=== PATIENT | male | born 1955 | race Caucasian/White ===

== ENCOUNTER 2020-03-12 09:44 | Emergency (ER) | payer BC ==
[2020-03-12 09:50] VITALS: BP 167/79; PULSE 68; TEMP 98.1; BMI 29.5
--- NOTE | 2020-03-12 11:02 | PDOC ---
Suture Removal/Wound Check HPI - History of Present Illness Chief Complaint: Suture/Staple Removal(Here) Stated Complaint: SUTURE REMOVAL (VADIM/HEAD) Time Seen by Provider: 03/12/20 10:40 History Source: Yes: Patient - Previous ED Treatment Type of procedure performed on last visit: Yes: Laceration Repair Past History - Medical History Allergies/Adverse Reactions: Allergies Allergy/AdvReac Type Severity Reaction Status Date / Time No Known Drug Allergies Allergy Verified 03/12/20 09:48 Home Medications: Ambulatory Orders Fenofibrate 160 mg PO DAILY 09/09/13 Naproxen Sodium [Aleve] 440 mg PO PRN PRN 09/09/13 Oxycodone HCl/Acetaminophen [Percocet 5-325 mg Tablet] 1 tab PO PRN PRN 09/09/13 metFORMIN HCL [Glucophage] 1,000 mg PO BID 09/09/13 Anemia: No Asthma: No Cancer: No Cardiac Disorders: No CVA: No COPD: No CHF: No Dementia: No Diabetes: Yes (BORDERLINE) GI Disorders: No Disorders: No Hypercholesterolemia: Yes Liver Disease: No Seizures: No Thyroid Disease: No - Immunization History Immunization Up to Date: Yes - Psycho-Social/Smoking History Smoking History: Former smoker Have you smoked in the past 12 months: Yes Number of Cigarettes Smoked Daily: 25 Information on smoking cessation initiated: No 'Breaking Loose' booklet given: 09/10/13 - Substance Abuse Hx (Audit-C & DAST Scrn) How often the patient has a drink containing alcohol: Never Score: In Men: 4 or > Positive; In Women: 3 or > Positive: 0 Screen Result (Pos requires Nsg. Audit-10AR): Negative In the last yr the pt used illegal drug/Rx for NonMed reason: No Score: Yes response is considered Positive: 0 Screen Result (Positive result requires Nsg. DAST-10): Negative *Review of Systems - Review of Systems Constitutional: No: Chills, Fever *Physical Exam - Vital Signs Last Vital Signs Temp Pulse Resp BP Pulse Ox 98.1 F 68 18 167/79 100 03/12/20 09:48 03/12/20 09:48 03/12/20 09:48 03/12/20 09:48 03/12/20 09:48 - Physical Exam General Appearance: Yes: Appropriately Dressed. No: Apparent Distress HEENT: positive: Normal Voice Neck: positive: Supple Respiratory/Chest: negative: Respiratory Distress Integumentary: positive: Dry, Warm, Other (well healed vertical lac to mid frontal scalp w/ vadim in place, no e/o infection) Neurologic: positive: Fully Oriented, Alert, Normal Mood/Affect Medical Decision Making - Medical Decision Making 03/12/20 12:24 65-year-old male, here for staple removal to scalp. No complaints at this time. Patient well-appearing and stable with well-healing wound to frontal scalp with 6 vadim intact. Vadim removed out any complications Discharge - Discharge Information Problems reviewed: Yes Clinical Impression/Diagnosis: Encounter for removal of vadim Condition: Good Disposition: HOME - Follow up/Referral Referrals: Oswald Strange MD [Primary Care Provider] - - Patient Discharge Instructions Additional Instructions: Return as needed - Post Discharge Activity
== END 2020-03-12 10:49 | disposition home or self-care (01) ==
LOC: JERFT 09:44
DX: Z48.02 Encounter for removal of sutures (principal)
CPT/HCPCS: 99281-25

== ENCOUNTER 2020-08-07 11:01 | Emergency (ER) | payer OTHER, BC ==
[2020-08-07 11:34] VITALS: BP 168/84; PULSE 66; TEMP 98.1; BMI 29.0
[2020-08-07] MEDS ORDERED: LIDOCAINE 5% TOPICAL PATCH TP ONE (11:44)
[2020-08-07] MEDS ORDERED: KETOROLAC TROMETHAMINE 30 MG/1 ML VIAL IM ONE (11:44)
[2020-08-07] MEDS ORDERED: METHOCARBAMOL 500 MG TABLET PO ONE (11:44)
[2020-08-07] MEDS ORDERED: LIDOCAINE 5% TOPICAL PATCH ONE (11:45)
[2020-08-07] MEDS ORDERED: METHOCARBAMOL 500 MG TABLET ONE (11:46)
[2020-08-07] MEDS ORDERED: KETOROLAC TROMETHAMINE 30 MG/1 ML VIAL ONE (11:46)
== END 2020-08-07 13:18 | disposition home or self-care (01) ==
LOC: JERFT 11:01
PROC: 3E0233Z Introduction of Anti-inflammatory into Muscle, Percutaneous Approach (ICD-10-PCS; principal; 2020-08-07)
DX: M54.5 Low back pain (principal); W19.XXXA Unspecified fall, initial encounter
CPT/HCPCS: 72100-TC-FY; 99284-25

== ENCOUNTER 2020-12-13 17:17 | Observation (INO) | payer BC ==
[2020-12-13 19:23] LABS: BASO % 0.4 % (0-2.0); EOS % 0.7 % (0-4.5); HEMATOCRIT 43.4 % (35.4-49); HEMOGLOBIN 14.8 GM/dL (11.7-16.9); LYMPH % 24.1 % (8-40); MCH 31.4 pg (25.7-33.7); MCHC 34.2 g/dl (32.0-35.9); MEAN PLT VOLUME 7.1 fl (7.5-11.1); MONO % 4.9 % (3.8-10.2); NEUT % 69.9 % (42.8-82.8); PLATELET COUNT 279 K/MM3 (134-434); RBC 4.72 M/mm3 (4.00-5.60); WHITE BLOOD COUNT 7.5 K/mm3 (4.0-10.0)
[2020-12-13 19:37] LABS: CHLORIDE 107 mmol/L (98-107); SODIUM 139 mmol/L (136-145)
[2020-12-13 19:40] LABS: CALCIUM 9.1 mg/dL (8.5-10.1)
[2020-12-13 19:41] LABS: ALBUMIN 4.1 g/dl (3.4-5.0); ANION GAP 9 MMOL/L (8-16); BLOOD UREA NITROGEN 16.6 mg/dL (7-18); CO2 24 mmol/L (21-32); GLUCOSE,RANDOM 104 mg/dL (74-106)
[2020-12-13 19:44] LABS: CREATININE 1.2 mg/dL (0.55-1.3); SGOT/AST 15 U/L (15-37)
[2020-12-13 19:46] LABS: BILIRUBIN,TOTAL 0.7 mg/dL (0.2-1); TOT PROT 6.4 g/dl (6.4-8.2)
[2020-12-13 19:47] LABS: ALK PHOS 84 U/L (45-117)
[2020-12-13 19:51] LABS: SGPT/ALT 29 U/L (13-61)
[2020-12-13] MEDS ORDERED: ACETAMINOPHEN 325 MG TABLET (FP) PO PRN (22:32)
[2020-12-13] MEDS ORDERED: CARVEDILOL 12.5 MG TABLET (FP) ONE (23:00)
[2020-12-13] MEDS: CARVEDILOL 25 MG TABLET (FP) PO SCH (23:08)
[2020-12-13] MEDS ORDERED: ACETAMINOPHEN 325 MG TABLET (FP) ONE (23:48)
[2020-12-14 01:27] VITALS: BMI 27.5
[2020-12-14] MEDS: INSULIN SLIDING SCALE (NOVOLOG) 1 VIAL SQ SCH ×4 (06:25→21:03)
[2020-12-14 06:53] LABS: URINE APPEARANCE CLEAR; URINE BILIRUBIN NEGATIVE (NEGATIVE); URINE COLOR DK YELLOW; URINE GLUCOSE (UA) NEGATIVE (NEGATIVE); URINE KETONE TRACE (NEGATIVE); URINE LEUK ESTERASE NEGATIVE (NEGATIVE); URINE NITRITE NEGATIVE (NEGATIVE); URINE PROTEIN TRACE (NEGATIVE)
[2020-12-14 07:10] LABS: BASO % 0.6 % (0-2.0); EOS % 2.2 % (0-4.5); HEMOGLOBIN 13.9 GM/dL (11.7-16.9); LYMPH % 25.2 % (8-40); MCH 31.4 pg (25.7-33.7); MEAN CELL VOLUME 92.5 fl (80-96); MEAN PLT VOLUME 7.5 fl (7.5-11.1); MONO % 5.5 % (3.8-10.2); NEUT % 66.5 % (42.8-82.8); PLATELET COUNT 252 K/MM3 (134-434); RBC 4.44 M/mm3 (4.00-5.60); RDW 13.5 % (11.9-15.9); WHITE BLOOD COUNT 8.3 K/mm3 (4.0-10.0)
[2020-12-14 07:16] LABS: INR 1.14 (0.83-1.09)
[2020-12-14 07:40] LABS: ALBUMIN 3.7 g/dl (3.4-5.0); CALCIUM 8.9 mg/dL (8.5-10.1)
[2020-12-14 07:43] LABS: MAGNESIUM 2.4 mg/dL (1.8-2.4)
[2020-12-14 07:46] LABS: BILIRUBIN,TOTAL 0.8 mg/dL (0.2-1); TOT PROT 6.1 g/dl (6.4-8.2)
[2020-12-14 07:51] LABS: PHOSPHOROUS 4.2 mg/dL (2.5-4.9)
[2020-12-14] MEDS ORDERED: PNEUMOC 13-VAL CONJ-DIP CRM/PF 0.5 ML DISP.SYRIN IM ONE (10:00)
[2020-12-14] MEDS: ENOXAPARIN NA (PORCINE) 40 MG/0.4 ML DISP.SYRIN SQ SCH (10:41)
[2020-12-14] MEDS: CARVEDILOL 25 MG TABLET (FP) PO SCH ×2 (10:41→21:03)
[2020-12-14] MEDS ORDERED: ASPIRIN 325 MG TABLET PO ONE (20:45)
[2020-12-14] MEDS ORDERED: CARVEDILOL 12.5 MG TABLET (FP) PO ONE (20:55)
[2020-12-15] MEDS ORDERED: ASPIRIN 325 MG TABLET PO ONE (00:24)
[2020-12-15] MEDS ORDERED: CARVEDILOL 25 MG TABLET (FP) PO ONE (00:25)
[2020-12-15] MEDS: INSULIN SLIDING SCALE (NOVOLOG) 1 VIAL SQ SCH ×4 (06:04→21:04)
[2020-12-15 07:40] LABS: CHLORIDE 106 mmol/L (98-107); SODIUM 140 mmol/L (136-145)
[2020-12-15 07:44] LABS: ANION GAP 9 MMOL/L (8-16); CALCIUM 8.5 mg/dL (8.5-10.1); CO2 24 mmol/L (21-32)
[2020-12-15 07:45] LABS: BLOOD UREA NITROGEN 16.8 mg/dL (7-18); GLUCOSE,RANDOM 99 mg/dL (74-106)
[2020-12-15 07:48] LABS: CREATININE 0.7 mg/dL (0.55-1.3)
[2020-12-15 09:02] LABS: MAGNESIUM 2.1 mg/dL (1.8-2.4)
[2020-12-15] MEDS ORDERED: POTASSIUM CHLORIDE TABS 20 MEQ TABLET.ER (FP) PO ONE (11:02)
[2020-12-15] MEDS: CARVEDILOL 25 MG TABLET (FP) PO SCH ×2 (11:05→21:07)
[2020-12-15] MEDS: ASPIRIN 81 MG CHEWABLE TABLETS PO SCH (11:05)
[2020-12-15] MEDS: ENOXAPARIN NA (PORCINE) 40 MG/0.4 ML DISP.SYRIN SQ SCH (11:05)
[2020-12-15] MEDS: TAMSULOSIN HCL 0.4 MG CAP PO SCH (11:05)
[2020-12-15] MEDS: LISINOPRIL 20 MG TABLET PO SCH (11:05)
[2020-12-15] MEDS: KCL 10 MEQ IVPB 10 MEQ/100 ML INFUS.BAG IVPB SCH (11:55)
[2020-12-15] MEDS ORDERED: INSULIN (NOVOLOG) ASPART 100 UNITS/ML 10ML VIAL ONE (20:51)
[2020-12-15] MEDS ORDERED: ATORVASTATIN CA 40 MG TABLET (FP) PO SCH (22:00)
[2020-12-15] MEDS ORDERED: ATORVASTATIN CA 20 MG TABLET (FP) PO SCH (22:00)
[2020-12-16] MEDS: INSULIN SLIDING SCALE (NOVOLOG) 1 VIAL SQ SCH ×2 (06:11→12:12)
[2020-12-16 10:10] LABS: CALCIUM 8.8 mg/dL (8.5-10.1)
[2020-12-16 10:11] LABS: BLOOD UREA NITROGEN 18.2 mg/dL (7-18)
[2020-12-16 10:14] LABS: CREATININE 0.8 mg/dL (0.55-1.3)
[2020-12-16 10:21] VITALS: BP 130/76; PULSE 56; TEMP 98.1
[2020-12-16] MEDS: ENOXAPARIN NA (PORCINE) 40 MG/0.4 ML DISP.SYRIN SQ SCH (10:54)
[2020-12-16] MEDS: LISINOPRIL 20 MG TABLET PO SCH (10:54)
[2020-12-16] MEDS: CARVEDILOL 25 MG TABLET (FP) PO SCH (10:54)
[2020-12-16] MEDS: TAMSULOSIN HCL 0.4 MG CAP PO SCH (10:54)
[2020-12-16] MEDS: ASPIRIN 81 MG CHEWABLE TABLETS PO SCH (10:54)
[2020-12-20] MEDS ORDERED: ERGOCALCIFEROL (VIT D2) 50,000 UNIT (1.25 MG) CAPSULE PO SCH (10:00)
== END 2020-12-16 13:24 | disposition home health service (06) ==
LOC: JER 17:17 → JERBED 20:33 → OBSVTOIN 20:33 → UNDOADMOB 20:33 → INTOOBSV 20:33 → JERBED 12-14 01:03 → J4W 12-14 01:03 → JERBED 12-14 09:49 → J4W 12-14 09:49
PROVIDERS: ADMIT Internal Medicine; ATTEND Student in an Organized Health Care Education/Training Program
PROC: 3E013GC Introduction of Other Therapeutic Substance into Subcutaneous Tissue, Percutaneous Approach (ICD-10-PCS; principal; 2020-12-14)
DX: R41.0 Disorientation, unspecified (principal); M25.552 Pain in left hip; R94.31 Abnormal electrocardiogram [ECG] [EKG]; I10 Essential (primary) hypertension; E11.9 Type 2 diabetes mellitus without complications; Z79.84 Long term (current) use of oral hypoglycemic drugs; E78.5 Hyperlipidemia, unspecified; N40.0 Benign prostatic hyperplasia without lower urinary tract symptoms; G30.9 Alzheimer's disease, unspecified; F02.80 Dementia in other diseases classified elsewhere, unspecified severity, without behavioral disturbance, psychotic disturbance, mood disturbance, and anxiety; R29.6 Repeated falls; F17.210 Nicotine dependence, cigarettes, uncomplicated
CPT/HCPCS: 36415; 70450-TC; 70551-TC; 71045-TC-FY; 72100-TC-FY; 73523-TC-FY; 80048; 80053; 81003; 82550; 82962; 83735; 84100; 84439; 84443; 84484; 85025; 85610; 87086; 93005; 93010; 93306-TC; 93880-TC; 97116-GP; 97161-GP; 99285-25; C9803; G0378; U0003; U0005

== ENCOUNTER 2022-04-10 05:45 | Emergency (ER) | payer OTHER ==
[2022-04-10] MEDS ORDERED: SODIUM CHLORIDE 1,000 ML IV SCH (06:00)
[2022-04-10 06:02] VITALS: RESP 18; BMI 27.1
[2022-04-10 06:47] LABS: BASO % 0.3 % (0-2.0); EOS % 0.1 % (0-4.5); HEMATOCRIT 48.7 % (35.4-49); HEMOGLOBIN 16.7 GM/dL (11.7-16.9); LYMPH % 8.4 % (8-40); MCH 31.2 pg (25.7-33.7); MCHC 34.4 g/dl (32.0-35.9); MEAN CELL VOLUME 90.8 fl (80-96); MEAN PLT VOLUME 7.9 fl (7.5-11.1); MONO % 2.4 % (3.8-10.2); NEUT % 88.8 % (42.8-82.8); PLATELET COUNT 200 10^3/uL (134-434); RBC 5.37 M/mm3 (4.00-5.60); RDW 13.3 % (11.9-15.9); WHITE BLOOD COUNT 9.3 K/mm3 (4.0-10.0)
[2022-04-10 06:53] LABS: INR 1.16 (0.83-1.09); PROTHROMBIN TIME (PATIENT) 13.4 SEC (9.7-13.0)
[2022-04-10 06:56] LABS: ACTIVATED PTT 31.1 SECONDS (25.2-36.5)
[2022-04-10 07:09] LABS: ALBUMIN 4.2 g/dl (3.4-5.0); CALCIUM 8.8 mg/dL (8.5-10.1)
[2022-04-10 07:11] LABS: BLOOD UREA NITROGEN 18.7 mg/dL (7-18)
[2022-04-10 07:12] LABS: CREATININE 0.9 mg/dL (0.55-1.3)
[2022-04-10 07:15] LABS: BILIRUBIN,TOTAL 1.3 mg/dL (0.2-1); TOT PROT 6.9 g/dl (6.4-8.2)
[2022-04-10 08:28] VITALS: BP 188/89; PULSE 88; TEMP 98.4
== END 2022-04-10 08:58 | disposition short-term general hospital (02) ==
LOC: JER 05:45
DX: I63.9 Cerebral infarction, unspecified (principal)
CPT/HCPCS: 0241U-QW; 36415; 70450-TC; 70496-TC; 70498-TC; 80053; 80061; 82550; 82553; 83036; 84484; 85025; 85610; 85730; 86850; 86900; 86901; 93005; 93010; 99285-25

== ENCOUNTER 2022-06-15 12:34 | Inpatient (IN) | payer OTHER, BC ==
[2022-06-15 12:56] VITALS: BMI 25.7
[2022-06-15] MEDS: SODIUM CHLORIDE 1,000 ML IV SCH (13:51)
[2022-06-15 14:57] LABS: BASO % 0.7 % (0-2.0); EOS % 2.9 % (0-4.5); HEMATOCRIT 41.6 % (35.4-49); LYMPH % 19.5 % (8-40); MCH 31.2 pg (25.7-33.7); MCHC 33.6 g/dl (32.0-35.9); MEAN CELL VOLUME 92.8 fl (80-96); MEAN PLT VOLUME 7.6 fl (7.5-11.1); MONO % 5.5 % (3.8-10.2); NEUT % 71.4 % (42.8-82.8); PLATELET COUNT 323 10^3/uL (134-434); RBC 4.49 M/mm3 (4.00-5.60); RDW 14.3 % (11.9-15.9)
[2022-06-15 15:04] LABS: INR 1.15 (0.83-1.09); PROTHROMBIN TIME (PATIENT) 13.3 SEC (9.7-13.0)
[2022-06-15 15:07] LABS: ACTIVATED PTT 32.2 SECONDS (25.2-36.5)
[2022-06-15 15:20] LABS: CALCIUM 8.8 mg/dL (8.5-10.1)
[2022-06-15 15:21] LABS: ALBUMIN 3.4 g/dl (3.4-5.0)
[2022-06-15 15:24] LABS: BILIRUBIN,TOTAL 0.8 mg/dL (0.2-1); CREATININE 0.8 mg/dL (0.55-1.3); TOT PROT 6.3 g/dl (6.4-8.2)
[2022-06-15 17:31] LABS: CALCIUM 8.9 mg/dL (8.5-10.1)
[2022-06-15 17:32] LABS: BLOOD UREA NITROGEN 17.2 mg/dL (7-18)
[2022-06-15 17:35] LABS: CREATININE 0.7 mg/dL (0.55-1.3)
[2022-06-16] MEDS ORDERED: ATORVASTATIN CA 80 MG TABLET (FP) ONE (03:59)
[2022-06-16] MEDS: INSULIN SLIDING SCALE (NOVOLOG) 1 VIAL SQ SCH ×4 (04:06→22:04)
[2022-06-16] MEDS: ATORVASTATIN CA 80 MG TABLET (FP) PO SCH ×2 (04:06→21:59)
[2022-06-16 07:54] LABS: URINE APPEARANCE CLEAR; URINE BILIRUBIN NEGATIVE (NEGATIVE); URINE COLOR YELLOW; URINE GLUCOSE (UA) NEGATIVE (NEGATIVE); URINE KETONE NEGATIVE (NEGATIVE); URINE LEUK ESTERASE NEGATIVE (NEGATIVE); URINE NITRITE NEGATIVE (NEGATIVE); URINE PROTEIN NEGATIVE (NEGATIVE)
[2022-06-16 08:12] LABS: BASO % 0.5 % (0-2.0); EOS % 2.6 % (0-4.5); HEMATOCRIT 41.9 % (35.4-49); HEMOGLOBIN 14.2 GM/dL (11.7-16.9); LYMPH % 24.8 % (8-40); MCH 31.1 pg (25.7-33.7); MEAN CELL VOLUME 91.5 fl (80-96); MEAN PLT VOLUME 7.2 fl (7.5-11.1); MONO % 6.2 % (3.8-10.2); NEUT % 65.9 % (42.8-82.8); PLATELET COUNT 289 10^3/uL (134-434); RBC 4.58 M/mm3 (4.00-5.60); RDW 13.9 % (11.9-15.9)
[2022-06-16 08:36] LABS: ALBUMIN 3.4 g/dl (3.4-5.0); BLOOD UREA NITROGEN 14.8 mg/dL (7-18); MAGNESIUM 2.1 mg/dL (1.8-2.4)
[2022-06-16 08:39] LABS: CREATININE 0.6 mg/dL (0.55-1.3); PHOSPHOROUS 3.7 mg/dL (2.5-4.9)
[2022-06-16 08:41] LABS: BILIRUBIN,TOTAL 0.9 mg/dL (0.2-1); TOT PROT 5.9 g/dl (6.4-8.2)
[2022-06-16] MEDS ORDERED: APIXABAN 5 MG TABLET PO SCH (10:00)
[2022-06-16] MEDS: CARVEDILOL 25 MG TABLET (FP) PO SCH (21:59)
[2022-06-16] MEDS: LACTATED RINGERS SOLUTION 1,000 ML/1,000 ML INFUS.BAG IV SCH (22:02)
[2022-06-16] MEDS: ASPIRIN COATED 81 MG TABLET.EC PO SCH (22:03)
[2022-06-16] MEDS: SODIUM CHLORIDE 1,000 ML IV SCH (22:03)
[2022-06-16] MEDS: TICAGRELOR 90 MG TABLET PO SCH ×2 (22:03→23:15)
[2022-06-16] MEDS: amLODIPine BESYLATE 10 MG TABLET (FP) PO SCH (22:04)
[2022-06-16] MEDS: LISINOPRIL 20 MG TABLET PO SCH (22:04)
[2022-06-17] MEDS: INSULIN SLIDING SCALE (NOVOLOG) 1 VIAL SQ SCH ×4 (06:05→21:37)
[2022-06-17 07:38] LABS: BASO % 0.5 % (0-2.0); EOS % 2.9 % (0-4.5); HEMATOCRIT 38.9 % (35.4-49); HEMOGLOBIN 13.2 GM/dL (11.7-16.9); LYMPH % 20.8 % (8-40); MCH 31.1 pg (25.7-33.7); MCHC 33.8 g/dl (32.0-35.9); MEAN CELL VOLUME 91.8 fl (80-96); MEAN PLT VOLUME 7.5 fl (7.5-11.1); MONO % 6.7 % (3.8-10.2); NEUT % 69.1 % (42.8-82.8); PLATELET COUNT 285 10^3/uL (134-434); RBC 4.24 M/mm3 (4.00-5.60); RDW 13.8 % (11.9-15.9); WHITE BLOOD COUNT 7.5 K/mm3 (4.0-10.0)
[2022-06-17 08:07] LABS: ALBUMIN 3.2 g/dl (3.4-5.0); BLOOD UREA NITROGEN 17.1 mg/dL (7-18); CREATININE 0.6 mg/dL (0.55-1.3); PHOSPHOROUS 3.4 mg/dL (2.5-4.9)
[2022-06-17 08:08] LABS: MAGNESIUM 1.9 mg/dL (1.8-2.4)
[2022-06-17 08:10] LABS: TOT PROT 5.6 g/dl (6.4-8.2)
[2022-06-17] MEDS: LISINOPRIL 20 MG TABLET PO SCH (09:31)
[2022-06-17] MEDS: TICAGRELOR 90 MG TABLET PO SCH ×2 (09:32→21:38)
[2022-06-17] MEDS: ENOXAPARIN NA (PORCINE) 40 MG/0.4 ML DISP.SYRIN SQ SCH (09:32)
[2022-06-17] MEDS: TAMSULOSIN HCL 0.4 MG CAP PO SCH (09:32)
[2022-06-17] MEDS: amLODIPine BESYLATE 10 MG TABLET (FP) PO SCH (09:32)
[2022-06-17] MEDS: CARVEDILOL 25 MG TABLET (FP) PO SCH ×2 (09:32→21:38)
[2022-06-17] MEDS: ASPIRIN COATED 81 MG TABLET.EC PO SCH (09:32)
[2022-06-17] MEDS: SODIUM CHLORIDE 1,000 ML IV SCH (14:10)
[2022-06-17] MEDS: LACTATED RINGERS SOLUTION 1,000 ML/1,000 ML INFUS.BAG IV SCH (16:09)
[2022-06-17] MEDS: ATORVASTATIN CA 80 MG TABLET (FP) PO SCH (21:38)
[2022-06-18] MEDS: LACTATED RINGERS SOLUTION 1,000 ML/1,000 ML INFUS.BAG IV SCH
[2022-06-18] MEDS: INSULIN SLIDING SCALE (NOVOLOG) 1 VIAL SQ SCH ×4 (06:08→21:15)
[2022-06-18 07:45] LABS: BASO % 0.5 % (0-2.0); EOS % 2.7 % (0-4.5); HEMATOCRIT 37.2 % (35.4-49); HEMOGLOBIN 12.6 GM/dL (11.7-16.9); LYMPH % 20.8 % (8-40); MCH 31.2 pg (25.7-33.7); MCHC 33.8 g/dl (32.0-35.9); MEAN CELL VOLUME 92.2 fl (80-96); MEAN PLT VOLUME 7.6 fl (7.5-11.1); MONO % 5.5 % (3.8-10.2); NEUT % 70.5 % (42.8-82.8); PLATELET COUNT 260 10^3/uL (134-434); RBC 4.04 M/mm3 (4.00-5.60); RDW 13.8 % (11.9-15.9); WHITE BLOOD COUNT 7.8 K/mm3 (4.0-10.0)
[2022-06-18 08:14] LABS: CALCIUM 8.8 mg/dL (8.5-10.1); MAGNESIUM 1.9 mg/dL (1.8-2.4)
[2022-06-18 08:16] LABS: CREATININE 0.7 mg/dL (0.55-1.3); PHOSPHOROUS 3.7 mg/dL (2.5-4.9)
[2022-06-18 08:17] LABS: TOT PROT 5.2 g/dl (6.4-8.2)
[2022-06-18 08:18] LABS: BILIRUBIN,TOTAL 0.9 mg/dL (0.2-1)
[2022-06-18] MEDS: TAMSULOSIN HCL 0.4 MG CAP PO SCH (08:25)
[2022-06-18] MEDS: ENOXAPARIN NA (PORCINE) 40 MG/0.4 ML DISP.SYRIN SQ SCH (10:11)
[2022-06-18] MEDS: TICAGRELOR 90 MG TABLET PO SCH ×2 (10:11→21:14)
[2022-06-18] MEDS: ASPIRIN COATED 81 MG TABLET.EC PO SCH (10:12)
[2022-06-18] MEDS: amLODIPine BESYLATE 10 MG TABLET (FP) PO SCH (10:13)
[2022-06-18] MEDS: CARVEDILOL 25 MG TABLET (FP) PO SCH ×2 (10:13→21:15)
[2022-06-18] MEDS: LISINOPRIL 20 MG TABLET PO SCH (10:14)
[2022-06-18] MEDS: ATORVASTATIN CA 80 MG TABLET (FP) PO SCH (21:14)
[2022-06-19] MEDS: INSULIN SLIDING SCALE (NOVOLOG) 1 VIAL SQ SCH ×4 (06:06→21:39)
[2022-06-19 07:41] LABS: BASO % 0.6 % (0-2.0); EOS % 3.6 % (0-4.5); HEMOGLOBIN 12.2 GM/dL (11.7-16.9); LYMPH % 21.4 % (8-40); MCH 31.4 pg (25.7-33.7); MEAN CELL VOLUME 92.3 fl (80-96); MEAN PLT VOLUME 7.7 fl (7.5-11.1); MONO % 5.6 % (3.8-10.2); NEUT % 68.8 % (42.8-82.8); PLATELET COUNT 254 10^3/uL (134-434); RDW 14.1 % (11.9-15.9); WHITE BLOOD COUNT 7.4 K/mm3 (4.0-10.0)
[2022-06-19] MEDS: TAMSULOSIN HCL 0.4 MG CAP PO SCH (08:07)
[2022-06-19 08:08] LABS: CALCIUM 8.6 mg/dL (8.5-10.1); PHOSPHOROUS 3.4 mg/dL (2.5-4.9)
[2022-06-19 08:09] LABS: BILIRUBIN,TOTAL 0.9 mg/dL (0.2-1); BLOOD UREA NITROGEN 14.4 mg/dL (7-18); MAGNESIUM 1.8 mg/dL (1.8-2.4)
[2022-06-19 08:11] LABS: CREATININE 0.6 mg/dL (0.55-1.3)
[2022-06-19] MEDS: amLODIPine BESYLATE 10 MG TABLET (FP) PO SCH (09:04)
[2022-06-19] MEDS: LISINOPRIL 20 MG TABLET PO SCH (09:04)
[2022-06-19] MEDS: ENOXAPARIN NA (PORCINE) 40 MG/0.4 ML DISP.SYRIN SQ SCH (09:04)
[2022-06-19] MEDS: CARVEDILOL 25 MG TABLET (FP) PO SCH ×2 (09:04→21:36)
[2022-06-19] MEDS: ASPIRIN COATED 81 MG TABLET.EC PO SCH (09:04)
[2022-06-19] MEDS: TICAGRELOR 90 MG TABLET PO SCH ×2 (09:05→21:36)
[2022-06-19 15:29] LABS: EPI CELLS 5 /uL (0-25.1); HYALINE CASTS 7 /uL (0-3.1); PH,URINE 6.5 (5.0-8.0); URINE APPEARANCE TURBID; URINE BACTERIA 5460 /uL (0-1359); URINE BILIRUBIN NEGATIVE (NEGATIVE); URINE COLOR YELLOW; URINE GLUCOSE (UA) NEGATIVE (NEGATIVE); URINE KETONE TRACE (NEGATIVE); URINE LEUK ESTERASE 3+ (NEGATIVE); URINE NITRITE NEGATIVE (NEGATIVE); URINE PROTEIN 2+ (NEGATIVE); URINE RBC 43 /uL (0-23.9); URINE WBC 4309 /uL (0-25.8)
[2022-06-19] MEDS ORDERED: CEFTRIAXONE 1 GM in DEXTROSE 5%-WATER - 50 ML IVPB SCH (16:30)
[2022-06-19] MEDS ORDERED: CEFTRIAXONE 1 GM in DEXTROSE 5%-WATER - 50 ML IVPB ONE (16:45)
[2022-06-19] MEDS: ATORVASTATIN CA 80 MG TABLET (FP) PO SCH (21:36)
[2022-06-20] MEDS: INSULIN SLIDING SCALE (NOVOLOG) 1 VIAL SQ SCH ×5 (06:45→21:49)
[2022-06-20] MEDS: TAMSULOSIN HCL 0.4 MG CAP PO SCH (08:57)
[2022-06-20] MEDS: CARVEDILOL 25 MG TABLET (FP) PO SCH (09:42)
[2022-06-20] MEDS: amLODIPine BESYLATE 10 MG TABLET (FP) PO SCH (09:42)
[2022-06-20] MEDS: ASPIRIN COATED 81 MG TABLET.EC PO SCH (09:42)
[2022-06-20] MEDS: LISINOPRIL 20 MG TABLET PO SCH (09:42)
[2022-06-20] MEDS: CEFTRIAXONE 1 GM in DEXTROSE 5%-WATER - 50 ML IVPB SCH (09:42)
[2022-06-20] MEDS: ENOXAPARIN NA (PORCINE) 40 MG/0.4 ML DISP.SYRIN SQ SCH (09:42)
[2022-06-20] MEDS: TICAGRELOR 90 MG TABLET PO SCH ×2 (09:42→21:49)
[2022-06-20] MEDS: ATORVASTATIN CA 80 MG TABLET (FP) PO SCH (21:49)
[2022-06-20] MEDS: CARVEDILOL 12.5 MG TABLET (FP) PO SCH (21:49)
[2022-06-21] MEDS: INSULIN SLIDING SCALE (NOVOLOG) 1 VIAL SQ SCH ×4 (06:11→22:32)
[2022-06-21 08:38] LABS: BASO % 0.6 % (0-2.0); EOS % 4.1 % (0-4.5); HEMATOCRIT 35.3 % (35.4-49); HEMOGLOBIN 12.2 GM/dL (11.7-16.9); LYMPH % 24.8 % (8-40); MCH 31.8 pg (25.7-33.7); MCHC 34.5 g/dl (32.0-35.9); MEAN CELL VOLUME 92.2 fl (80-96); MEAN PLT VOLUME 7.8 fl (7.5-11.1); MONO % 6.6 % (3.8-10.2); NEUT % 63.9 % (42.8-82.8); PLATELET COUNT 239 10^3/uL (134-434); RBC 3.83 M/mm3 (4.00-5.60); RDW 13.8 % (11.9-15.9); WHITE BLOOD COUNT 6.5 K/mm3 (4.0-10.0)
[2022-06-21 08:53] LABS: ALBUMIN 2.9 g/dl (3.4-5.0)
[2022-06-21 08:54] LABS: BLOOD UREA NITROGEN 12.2 mg/dL (7-18)
[2022-06-21 08:56] LABS: CALCIUM 8.5 mg/dL (8.5-10.1); CREATININE 0.7 mg/dL (0.55-1.3)
[2022-06-21 08:57] LABS: PHOSPHOROUS 3.5 mg/dL (2.5-4.9)
[2022-06-21 08:58] LABS: BILIRUBIN,TOTAL 0.9 mg/dL (0.2-1); TOT PROT 5.2 g/dl (6.4-8.2)
[2022-06-21] MEDS: TAMSULOSIN HCL 0.4 MG CAP PO SCH (09:15)
[2022-06-21] MEDS: CEFTRIAXONE 1 GM in DEXTROSE 5%-WATER - 50 ML IVPB SCH (09:57)
[2022-06-21] MEDS: amLODIPine BESYLATE 5 MG TABLET (FP) PO SCH (09:57)
[2022-06-21] MEDS: CARVEDILOL 12.5 MG TABLET (FP) PO SCH ×2 (09:57→22:31)
[2022-06-21] MEDS: TICAGRELOR 90 MG TABLET PO SCH ×2 (09:57→22:31)
[2022-06-21] MEDS: LISINOPRIL 20 MG TABLET PO SCH (09:57)
[2022-06-21] MEDS: ASPIRIN COATED 81 MG TABLET.EC PO SCH (09:57)
[2022-06-21] MEDS: ENOXAPARIN NA (PORCINE) 40 MG/0.4 ML DISP.SYRIN SQ SCH (09:57)
[2022-06-21] MEDS: ATORVASTATIN CA 80 MG TABLET (FP) PO SCH (22:31)
[2022-06-22] MEDS ORDERED: LORazepam 2 MG/ML SDV VIAL IVPUSH ONE (00:13)
[2022-06-22] MEDS: INSULIN SLIDING SCALE (NOVOLOG) 1 VIAL SQ SCH ×4 (06:20→21:53)
[2022-06-22 08:05] LABS: BASO % 0.4 % (0-2.0); EOS % 2.2 % (0-4.5); HEMATOCRIT 38.1 % (35.4-49); HEMOGLOBIN 12.9 GM/dL (11.7-16.9); LYMPH % 16.7 % (8-40); MCH 30.9 pg (25.7-33.7); MCHC 33.9 g/dl (32.0-35.9); MEAN CELL VOLUME 91.2 fl (80-96); MEAN PLT VOLUME 8.1 fl (7.5-11.1); MONO % 4.7 % (3.8-10.2); PLATELET COUNT 237 10^3/uL (134-434); RBC 4.18 M/mm3 (4.00-5.60); RDW 13.6 % (11.9-15.9); WHITE BLOOD COUNT 8.4 K/mm3 (4.0-10.0)
[2022-06-22 08:12] LABS: ALBUMIN 3.2 g/dl (3.4-5.0); BLOOD UREA NITROGEN 12.2 mg/dL (7-18); CALCIUM 8.5 mg/dL (8.5-10.1); MAGNESIUM 1.9 mg/dL (1.8-2.4)
[2022-06-22 08:15] LABS: CREATININE 0.7 mg/dL (0.55-1.3); PHOSPHOROUS 3.5 mg/dL (2.5-4.9)
[2022-06-22 08:16] LABS: BILIRUBIN,TOTAL 0.7 mg/dL (0.2-1); TOT PROT 5.4 g/dl (6.4-8.2)
[2022-06-22] MEDS: TAMSULOSIN HCL 0.4 MG CAP PO SCH (09:00)
[2022-06-22] MEDS: ENOXAPARIN NA (PORCINE) 40 MG/0.4 ML DISP.SYRIN SQ SCH (09:34)
[2022-06-22] MEDS: CARVEDILOL 12.5 MG TABLET (FP) PO SCH ×2 (09:34→21:51)
[2022-06-22] MEDS: ASPIRIN COATED 81 MG TABLET.EC PO SCH (09:34)
[2022-06-22] MEDS: LISINOPRIL 20 MG TABLET PO SCH (09:34)
[2022-06-22] MEDS: amLODIPine BESYLATE 5 MG TABLET (FP) PO SCH (09:34)
[2022-06-22] MEDS: CEFTRIAXONE 1 GM in DEXTROSE 5%-WATER - 50 ML IVPB SCH (09:35)
[2022-06-22] MEDS: TICAGRELOR 90 MG TABLET PO SCH ×2 (10:01→21:51)
[2022-06-22 16:46] LABS: HEMOGLOBIN 12.7 GM/dL (11.7-16.9); MCHC 33.4 g/dl (32.0-35.9); MEAN CELL VOLUME 92.9 fl (80-96); MEAN PLT VOLUME 8.1 fl (7.5-11.1); PLATELET COUNT 259 10^3/uL (134-434); RBC 4.09 M/mm3 (4.00-5.60); RDW 13.8 % (11.9-15.9); WHITE BLOOD COUNT 6.6 K/mm3 (4.0-10.0)
[2022-06-22 17:17] LABS: CALCIUM 8.6 mg/dL (8.5-10.1)
[2022-06-22 17:18] LABS: BLOOD UREA NITROGEN 11.4 mg/dL (7-18)
[2022-06-22 17:21] LABS: CREATININE 0.6 mg/dL (0.55-1.3)
[2022-06-22] MEDS: ATORVASTATIN CA 80 MG TABLET (FP) PO SCH (21:51)
[2022-06-22] MEDS: QUEtiapine FUMARATE 25 MG TABLET PO SCH (21:53)
[2022-06-23] MEDS: INSULIN SLIDING SCALE (NOVOLOG) 1 VIAL SQ SCH ×4 (06:56→22:23)
[2022-06-23 08:32] LABS: BASO % 0.5 % (0-2.0); EOS % 3.8 % (0-4.5); HEMATOCRIT 37.2 % (35.4-49); HEMOGLOBIN 12.5 GM/dL (11.7-16.9); LYMPH % 27.2 % (8-40); MCH 31.1 pg (25.7-33.7); MCHC 33.5 g/dl (32.0-35.9); MEAN PLT VOLUME 8.3 fl (7.5-11.1); MONO % 6.8 % (3.8-10.2); NEUT % 61.7 % (42.8-82.8); PLATELET COUNT 253 10^3/uL (134-434); RBC 4.01 M/mm3 (4.00-5.60); RDW 13.7 % (11.9-15.9)
[2022-06-23 08:52] LABS: ALBUMIN 3.2 g/dl (3.4-5.0); BLOOD UREA NITROGEN 12.5 mg/dL (7-18); CALCIUM 8.8 mg/dL (8.5-10.1); MAGNESIUM 2.1 mg/dL (1.8-2.4)
[2022-06-23 08:55] LABS: CREATININE 0.6 mg/dL (0.55-1.3); PHOSPHOROUS 4.1 mg/dL (2.5-4.9)
[2022-06-23 08:57] LABS: BILIRUBIN,TOTAL 0.7 mg/dL (0.2-1); TOT PROT 5.7 g/dl (6.4-8.2)
[2022-06-23] MEDS: ASPIRIN COATED 81 MG TABLET.EC PO SCH (09:18)
[2022-06-23] MEDS: TAMSULOSIN HCL 0.4 MG CAP PO SCH (09:18)
[2022-06-23] MEDS: LISINOPRIL 20 MG TABLET PO SCH (09:18)
[2022-06-23] MEDS: amLODIPine BESYLATE 5 MG TABLET (FP) PO SCH (09:18)
[2022-06-23] MEDS: CARVEDILOL 12.5 MG TABLET (FP) PO SCH ×2 (09:19→22:24)
[2022-06-23] MEDS: ENOXAPARIN NA (PORCINE) 40 MG/0.4 ML DISP.SYRIN SQ SCH (09:19)
[2022-06-23] MEDS: CEFTRIAXONE 1 GM in DEXTROSE 5%-WATER - 50 ML IVPB SCH (09:19)
[2022-06-23] MEDS: TICAGRELOR 90 MG TABLET PO SCH ×2 (09:20→22:24)
[2022-06-23 15:32] LABS: HEMATOCRIT 37.7 % (35.4-49); HEMOGLOBIN 12.5 GM/dL (11.7-16.9); MCH 30.9 pg (25.7-33.7); MCHC 33.2 g/dl (32.0-35.9); PLATELET COUNT 254 10^3/uL (134-434); RBC 4.06 M/mm3 (4.00-5.60); RDW 13.6 % (11.9-15.9); WHITE BLOOD COUNT 6.8 K/mm3 (4.0-10.0)
[2022-06-23 15:51] LABS: BLOOD UREA NITROGEN 13.4 mg/dL (7-18); CALCIUM 8.7 mg/dL (8.5-10.1)
[2022-06-23 15:54] LABS: CREATININE 0.7 mg/dL (0.55-1.3)
[2022-06-23] MEDS ORDERED: INSULIN (NOVOLOG) ASPART 100 UNITS/ML 10ML VIAL ONE (21:57)
[2022-06-23] MEDS: ATORVASTATIN CA 80 MG TABLET (FP) PO SCH (22:23)
[2022-06-23] MEDS: QUEtiapine FUMARATE 25 MG TABLET PO SCH (22:24)
[2022-06-24] MEDS: INSULIN SLIDING SCALE (NOVOLOG) 1 VIAL SQ SCH ×4 (06:34→21:14)
[2022-06-24] MEDS: TAMSULOSIN HCL 0.4 MG CAP PO SCH (08:15)
[2022-06-24 10:15] LABS: HEMATOCRIT 36.6 % (35.4-49); HEMOGLOBIN 12.3 GM/dL (11.7-16.9); MCH 31.1 pg (25.7-33.7); MCHC 33.5 g/dl (32.0-35.9); MEAN PLT VOLUME 8.1 fl (7.5-11.1); PLATELET COUNT 245 10^3/uL (134-434); RBC 3.94 M/mm3 (4.00-5.60); RDW 13.7 % (11.9-15.9); WHITE BLOOD COUNT 6.5 K/mm3 (4.0-10.0)
[2022-06-24] MEDS: LISINOPRIL 20 MG TABLET PO SCH (10:18)
[2022-06-24] MEDS: CEFTRIAXONE 1 GM in DEXTROSE 5%-WATER - 50 ML IVPB SCH (10:18)
[2022-06-24] MEDS: CARVEDILOL 12.5 MG TABLET (FP) PO SCH ×2 (10:19→21:11)
[2022-06-24] MEDS: ENOXAPARIN NA (PORCINE) 40 MG/0.4 ML DISP.SYRIN SQ SCH (10:19)
[2022-06-24] MEDS: ASPIRIN COATED 81 MG TABLET.EC PO SCH (10:19)
[2022-06-24] MEDS: amLODIPine BESYLATE 5 MG TABLET (FP) PO SCH (10:19)
[2022-06-24] MEDS: TICAGRELOR 90 MG TABLET PO SCH ×2 (10:19→21:11)
[2022-06-24 10:40] LABS: CALCIUM 8.7 mg/dL (8.5-10.1)
[2022-06-24 10:41] LABS: BLOOD UREA NITROGEN 12.5 mg/dL (7-18); MAGNESIUM 2.2 mg/dL (1.8-2.4)
[2022-06-24 10:44] LABS: CREATININE 0.6 mg/dL (0.55-1.3); PHOSPHOROUS 3.9 mg/dL (2.5-4.9)
[2022-06-24] MEDS: QUEtiapine FUMARATE 25 MG TABLET PO SCH (21:11)
[2022-06-24] MEDS: ATORVASTATIN CA 80 MG TABLET (FP) PO SCH (21:11)
[2022-06-25] MEDS: INSULIN SLIDING SCALE (NOVOLOG) 1 VIAL SQ SCH ×4 (06:18→23:21)
[2022-06-25] MEDS: TAMSULOSIN HCL 0.4 MG CAP PO SCH (08:12)
[2022-06-25] MEDS: LISINOPRIL 20 MG TABLET PO SCH (10:12)
[2022-06-25] MEDS: TICAGRELOR 90 MG TABLET PO SCH ×3 (10:12→23:26)
[2022-06-25] MEDS: CARVEDILOL 12.5 MG TABLET (FP) PO SCH ×3 (10:13→23:26)
[2022-06-25] MEDS: amLODIPine BESYLATE 5 MG TABLET (FP) PO SCH (10:13)
[2022-06-25] MEDS: ASPIRIN COATED 81 MG TABLET.EC PO SCH (10:13)
[2022-06-25] MEDS: CEFTRIAXONE 1 GM in DEXTROSE 5%-WATER - 50 ML IVPB SCH (10:13)
[2022-06-25] MEDS: ENOXAPARIN NA (PORCINE) 40 MG/0.4 ML DISP.SYRIN SQ SCH (10:13)
[2022-06-25] MEDS: ATORVASTATIN CA 80 MG TABLET (FP) PO SCH ×2 (23:20→23:26)
[2022-06-25] MEDS: QUEtiapine FUMARATE 25 MG TABLET PO SCH ×2 (23:21→23:26)
[2022-06-26] MEDS: INSULIN SLIDING SCALE (NOVOLOG) 1 VIAL SQ SCH ×4 (06:53→22:06)
[2022-06-26] MEDS: TAMSULOSIN HCL 0.4 MG CAP PO SCH (09:13)
[2022-06-26] MEDS: amLODIPine BESYLATE 5 MG TABLET (FP) PO SCH (09:14)
[2022-06-26] MEDS: ENOXAPARIN NA (PORCINE) 40 MG/0.4 ML DISP.SYRIN SQ SCH (09:14)
[2022-06-26] MEDS: CARVEDILOL 12.5 MG TABLET (FP) PO SCH ×2 (09:14→21:48)
[2022-06-26] MEDS: LISINOPRIL 20 MG TABLET PO SCH (09:14)
[2022-06-26] MEDS: ASPIRIN COATED 81 MG TABLET.EC PO SCH (09:14)
[2022-06-26] MEDS: CEFTRIAXONE 1 GM in DEXTROSE 5%-WATER - 50 ML IVPB SCH (09:14)
[2022-06-26] MEDS: TICAGRELOR 90 MG TABLET PO SCH ×2 (09:14→21:47)
[2022-06-26] MEDS: ATORVASTATIN CA 80 MG TABLET (FP) PO SCH (21:48)
[2022-06-26] MEDS: QUEtiapine FUMARATE 25 MG TABLET PO SCH (21:48)
[2022-06-27] MEDS: INSULIN SLIDING SCALE (NOVOLOG) 1 VIAL SQ SCH ×4 (06:29→21:57)
[2022-06-27] MEDS: TAMSULOSIN HCL 0.4 MG CAP PO SCH (09:40)
[2022-06-27] MEDS: ASPIRIN COATED 81 MG TABLET.EC PO SCH (09:40)
[2022-06-27] MEDS: amLODIPine BESYLATE 5 MG TABLET (FP) PO SCH (09:40)
[2022-06-27] MEDS: LISINOPRIL 20 MG TABLET PO SCH (09:41)
[2022-06-27] MEDS: ENOXAPARIN NA (PORCINE) 40 MG/0.4 ML DISP.SYRIN SQ SCH (09:41)
[2022-06-27] MEDS: CEFTRIAXONE 1 GM in DEXTROSE 5%-WATER - 50 ML IVPB SCH (09:41)
[2022-06-27] MEDS: CARVEDILOL 12.5 MG TABLET (FP) PO SCH ×2 (09:41→21:57)
[2022-06-27] MEDS: TICAGRELOR 90 MG TABLET PO SCH ×2 (09:41→21:57)
[2022-06-27 11:01] LABS: HEMATOCRIT 36.7 % (35.4-49); HEMOGLOBIN 12.2 GM/dL (11.7-16.9); MCH 30.9 pg (25.7-33.7); MCHC 33.2 g/dl (32.0-35.9); MEAN CELL VOLUME 93.2 fl (80-96); MEAN PLT VOLUME 7.9 fl (7.5-11.1); PLATELET COUNT 233 10^3/uL (134-434); RBC 3.94 M/mm3 (4.00-5.60); RDW 13.6 % (11.9-15.9)
[2022-06-27 11:24] LABS: BLOOD UREA NITROGEN 23.4 mg/dL (7-18); CALCIUM 8.4 mg/dL (8.5-10.1)
[2022-06-27 11:28] LABS: CREATININE 0.6 mg/dL (0.55-1.3); PHOSPHOROUS 3.6 mg/dL (2.5-4.9)
[2022-06-27] MEDS ORDERED: LACTATED RINGERS SOLUTION 1,000 ML/1,000 ML INFUS.BAG IV SCH (15:30)
[2022-06-27] MEDS: ATORVASTATIN CA 80 MG TABLET (FP) PO SCH (21:57)
[2022-06-27] MEDS: QUEtiapine FUMARATE 25 MG TABLET PO SCH (21:57)
[2022-06-28] MEDS: INSULIN SLIDING SCALE (NOVOLOG) 1 VIAL SQ SCH ×4 (06:17→21:19)
[2022-06-28] MEDS: TICAGRELOR 90 MG TABLET PO SCH ×2 (10:15→21:18)
[2022-06-28] MEDS: TAMSULOSIN HCL 0.4 MG CAP PO SCH (10:15)
[2022-06-28] MEDS: CARVEDILOL 12.5 MG TABLET (FP) PO SCH ×2 (10:16→21:18)
[2022-06-28] MEDS: ASPIRIN COATED 81 MG TABLET.EC PO SCH (10:16)
[2022-06-28] MEDS: LISINOPRIL 20 MG TABLET PO SCH (10:16)
[2022-06-28] MEDS: ENOXAPARIN NA (PORCINE) 40 MG/0.4 ML DISP.SYRIN SQ SCH (10:17)
[2022-06-28 10:43] LABS: HEMATOCRIT 34.2 % (35.4-49); HEMOGLOBIN 11.6 GM/dL (11.7-16.9); MCH 31.5 pg (25.7-33.7); MCHC 33.8 g/dl (32.0-35.9); MEAN CELL VOLUME 93.1 fl (80-96); MEAN PLT VOLUME 7.7 fl (7.5-11.1); PLATELET COUNT 193 10^3/uL (134-434); RBC 3.68 M/mm3 (4.00-5.60); RDW 13.4 % (11.9-15.9); WHITE BLOOD COUNT 8.2 K/mm3 (4.0-10.0)
[2022-06-28] MEDS: QUEtiapine FUMARATE 25 MG TABLET PO SCH (21:17)
[2022-06-28] MEDS: ATORVASTATIN CA 80 MG TABLET (FP) PO SCH (21:18)
[2022-06-29] MEDS: INSULIN SLIDING SCALE (NOVOLOG) 1 VIAL SQ SCH ×4 (06:46→21:46)
[2022-06-29] MEDS: TICAGRELOR 90 MG TABLET PO SCH ×2 (10:29→21:29)
[2022-06-29] MEDS: CARVEDILOL 12.5 MG TABLET (FP) PO SCH ×2 (10:30→21:29)
[2022-06-29] MEDS: LISINOPRIL 20 MG TABLET PO SCH (10:30)
[2022-06-29] MEDS: ASPIRIN COATED 81 MG TABLET.EC PO SCH (10:33)
[2022-06-29] MEDS: ENOXAPARIN NA (PORCINE) 40 MG/0.4 ML DISP.SYRIN SQ SCH (10:33)
[2022-06-29] MEDS: TAMSULOSIN HCL 0.4 MG CAP PO SCH (10:34)
[2022-06-29] MEDS: QUEtiapine FUMARATE 25 MG TABLET PO SCH (21:29)
[2022-06-29] MEDS: ATORVASTATIN CA 80 MG TABLET (FP) PO SCH (21:29)
[2022-06-29 21:37] VITALS: RESP 18
[2022-06-30] MEDS: INSULIN SLIDING SCALE (NOVOLOG) 1 VIAL SQ SCH ×2 (06:07→11:40)
[2022-06-30] MEDS: ENOXAPARIN NA (PORCINE) 40 MG/0.4 ML DISP.SYRIN SQ SCH (09:56)
[2022-06-30] MEDS: TICAGRELOR 90 MG TABLET PO SCH (09:57)
[2022-06-30] MEDS: TAMSULOSIN HCL 0.4 MG CAP PO SCH (09:57)
[2022-06-30] MEDS: ASPIRIN COATED 81 MG TABLET.EC PO SCH (09:57)
[2022-06-30] MEDS: LISINOPRIL 20 MG TABLET PO SCH (09:57)
[2022-06-30] MEDS: CARVEDILOL 12.5 MG TABLET (FP) PO SCH (09:57)
[2022-06-30 10:39] VITALS: BP 148/81; PULSE 72; TEMP 97.5
== END 2022-06-30 14:11 | DRG 948 ==
LOC: JER 12:34 → JERBED 17:21 → OBSVTOIN 21:49 → J4W 06-16 19:50 → J6S 06-23 21:02
PROVIDERS: ADMIT Internal Medicine; ATTEND Internal Medicine
DX: R41.82 Altered mental status, unspecified (principal); N39.0 Urinary tract infection, site not specified; I69.351 Hemiplegia and hemiparesis following cerebral infarction affecting right dominant side; R47.01 Aphasia; E11.9 Type 2 diabetes mellitus without complications; I10 Essential (primary) hypertension; E78.5 Hyperlipidemia, unspecified; N40.0 Benign prostatic hyperplasia without lower urinary tract symptoms; I65.22 Occlusion and stenosis of left carotid artery; B96.20 Unspecified Escherichia coli [E. coli] as the cause of diseases classified elsewhere
CPT/HCPCS: 0241U-QW; 36415; 70450-TC; 70496-TC; 70498-TC; 71045-TC-FY; 74230-TC-FY; 80048; 80053; 80061; 81003; 82140; 82962; 83036; 83735; 84100; 84439; 84443; 84481; 84484; 85025; 85027; 85610; 85730; 87086; 87186; 92611-GN; 93005; 93010; 97116-GP; 97162-GP; 99291; C9803-CS; G0378; Q9967; U0003; U0005

== ENCOUNTER 2022-09-01 18:36 | Observation (INO) | payer OTHER, BC ==
[2022-09-01 19:32] LABS: URINE APPEARANCE CLEAR; URINE BILIRUBIN NEGATIVE (NEGATIVE); URINE COLOR YELLOW; URINE GLUCOSE (UA) NEGATIVE (NEGATIVE); URINE KETONE NEGATIVE (NEGATIVE); URINE LEUK ESTERASE NEGATIVE (NEGATIVE); URINE NITRITE NEGATIVE (NEGATIVE); URINE PROTEIN NEGATIVE (NEGATIVE)
[2022-09-01 19:39] LABS: BASO % 0.4 % (0-2.0); EOS % 3.5 % (0-4.5); HEMATOCRIT 41.5 % (35.4-49); HEMOGLOBIN 14.1 GM/dL (11.7-16.9); INR 1.15 (0.83-1.09); LYMPH % 35.6 % (8-40); MCH 30.3 pg (25.7-33.7); MCHC 33.9 g/dl (32.0-35.9); MEAN CELL VOLUME 89.3 fl (80-96); MEAN PLT VOLUME 7.7 fl (7.5-11.1); MONO % 5.8 % (3.8-10.2); NEUT % 54.7 % (42.8-82.8); PLATELET COUNT 219 10^3/uL (134-434); PROTHROMBIN TIME (PATIENT) 13.3 SEC (9.7-13.0); RBC 4.65 M/mm3 (4.00-5.60); RDW 13.3 % (11.9-15.9); WHITE BLOOD COUNT 5.9 K/mm3 (4.0-10.0)
[2022-09-01 19:41] LABS: ACTIVATED PTT 34.7 SECONDS (25.2-36.5)
[2022-09-01 20:09] LABS: CALCIUM 8.5 mg/dL (8.5-10.1)
[2022-09-01 20:10] LABS: ALBUMIN 3.3 g/dl (3.4-5.0); BLOOD UREA NITROGEN 12.2 mg/dL (7-18)
[2022-09-01 20:13] LABS: CREATININE 0.6 mg/dL (0.55-1.3)
[2022-09-01 20:15] LABS: BILIRUBIN,TOTAL 0.5 mg/dL (0.2-1); TOT PROT 5.6 g/dl (6.4-8.2)
[2022-09-01] MEDS ORDERED: levETIRAcetam 500 MG/5 ML INJECTION VIAL IVPB ONE ×2 (22:34→23:07)
[2022-09-02] MEDS ORDERED: HALOPERIDOL LACTATE 5 MG/ML IM ONE ×2 (00:36→01:40)
[2022-09-02 07:06] LABS: BASO % 0.7 % (0-2.0); EOS % 4.1 % (0-4.5); HEMATOCRIT 45.3 % (35.4-49); LYMPH % 34.4 % (8-40); MCHC 33.2 g/dl (32.0-35.9); MEAN CELL VOLUME 90.5 fl (80-96); MEAN PLT VOLUME 7.5 fl (7.5-11.1); MONO % 7.8 % (3.8-10.2); PLATELET COUNT 222 10^3/uL (134-434); RBC 5.01 M/mm3 (4.00-5.60); RDW 13.4 % (11.9-15.9); WHITE BLOOD COUNT 7.9 K/mm3 (4.0-10.0)
[2022-09-02 07:30] LABS: CALCIUM 8.9 mg/dL (8.5-10.1)
[2022-09-02 07:31] LABS: ALBUMIN 3.6 g/dl (3.4-5.0); BLOOD UREA NITROGEN 10.4 mg/dL (7-18); MAGNESIUM 2.2 mg/dL (1.8-2.4)
[2022-09-02 07:34] LABS: CREATININE 0.6 mg/dL (0.55-1.3); PHOSPHOROUS 3.6 mg/dL (2.5-4.9)
[2022-09-02 07:35] LABS: BILIRUBIN,TOTAL 0.7 mg/dL (0.2-1); TOT PROT 6.2 g/dl (6.4-8.2)
[2022-09-02] MEDS: INSULIN SLIDING SCALE (NOVOLOG) 1 VIAL SQ SCH ×4 (08:11→22:12)
[2022-09-02] MEDS: DEXTROSE 5%-LACTATED RINGERS 1,000 ML IV SCH ×2 (08:37→21:30)
[2022-09-02] MEDS: QUEtiapine FUMARATE 25 MG TABLET PO SCH ×2 (11:29→21:31)
[2022-09-02] MEDS: levETIRAcetam 500 MG TABLET (FP) PO SCH ×2 (11:29→21:30)
[2022-09-02] MEDS: ENOXAPARIN NA (PORCINE) 40 MG/0.4 ML DISP.SYRIN SQ SCH (11:29)
[2022-09-02] MEDS: ASPIRIN COATED 81 MG TABLET.EC PO SCH (11:29)
[2022-09-02] MEDS ORDERED: ASPIRIN COATED 81 MG TABLET.EC ONE (11:30)
[2022-09-02] MEDS ORDERED: levETIRAcetam 500 MG TABLET (FP) PO ONE (11:30)
[2022-09-02] MEDS ORDERED: ENOXAPARIN NA (PORCINE) 40 MG/0.4 ML DISP.SYRIN SQ ONE (11:31)
[2022-09-02] MEDS ORDERED: QUEtiapine FUMARATE 25 MG TABLET ONE (11:31)
[2022-09-02] MEDS: TAMSULOSIN HCL 0.4 MG CAP PO SCH (21:31)
[2022-09-02] MEDS ORDERED: ATORVASTATIN CA 40 MG TABLET (FP) PO SCH (22:00)
[2022-09-03] MEDS: INSULIN SLIDING SCALE (NOVOLOG) 1 VIAL SQ SCH ×3 (07:41→23:50)
[2022-09-03] MEDS: DEXTROSE 5%-LACTATED RINGERS 1,000 ML IV SCH (08:30)
[2022-09-03] MEDS: QUEtiapine FUMARATE 25 MG TABLET PO SCH ×2 (09:54→21:26)
[2022-09-03] MEDS: ENOXAPARIN NA (PORCINE) 40 MG/0.4 ML DISP.SYRIN SQ SCH (09:54)
[2022-09-03] MEDS: ASPIRIN COATED 81 MG TABLET.EC PO SCH (09:54)
[2022-09-03] MEDS: levETIRAcetam 500 MG TABLET (FP) PO SCH ×2 (09:55→21:26)
[2022-09-03 11:08] LABS: BASO % 0.7 % (0-2.0); EOS % 3.6 % (0-4.5); HEMATOCRIT 39.6 % (35.4-49); HEMOGLOBIN 13.6 GM/dL (11.7-16.9); LYMPH % 23.5 % (8-40); MCH 30.8 pg (25.7-33.7); MCHC 34.3 g/dl (32.0-35.9); MEAN CELL VOLUME 89.7 fl (80-96); MEAN PLT VOLUME 7.3 fl (7.5-11.1); MONO % 6.1 % (3.8-10.2); NEUT % 66.1 % (42.8-82.8); PLATELET COUNT 184 10^3/uL (134-434); RBC 4.42 M/mm3 (4.00-5.60); RDW 13.3 % (11.9-15.9); WHITE BLOOD COUNT 7.1 K/mm3 (4.0-10.0)
[2022-09-03 11:30] LABS: BLOOD UREA NITROGEN 8.5 mg/dL (7-18); CALCIUM 8.3 mg/dL (8.5-10.1)
[2022-09-03 11:33] LABS: CREATININE 0.6 mg/dL (0.55-1.3); PHOSPHOROUS 3.6 mg/dL (2.5-4.9)
[2022-09-03] MEDS: TAMSULOSIN HCL 0.4 MG CAP PO SCH (21:26)
[2022-09-03] MEDS: ATORVASTATIN CA 80 MG TABLET (FP) PO SCH (21:26)
[2022-09-04] MEDS: DEXTROSE 5%-LACTATED RINGERS 1,000 ML IV SCH ×2 (01:38→13:18)
[2022-09-04] MEDS: INSULIN SLIDING SCALE (NOVOLOG) 1 VIAL SQ SCH ×4 (07:19→22:27)
[2022-09-04 07:42] LABS: BASO % 0.3 % (0-2.0); EOS % 2.3 % (0-4.5); HEMATOCRIT 41.7 % (35.4-49); HEMOGLOBIN 14.5 GM/dL (11.7-16.9); LYMPH % 20.6 % (8-40); MCHC 34.8 g/dl (32.0-35.9); MEAN PLT VOLUME 7.9 fl (7.5-11.1); MONO % 5.5 % (3.8-10.2); NEUT % 71.3 % (42.8-82.8); PLATELET COUNT 199 10^3/uL (134-434); RBC 4.69 M/mm3 (4.00-5.60); RDW 13.5 % (11.9-15.9); WHITE BLOOD COUNT 8.5 K/mm3 (4.0-10.0)
[2022-09-04 08:30] LABS: ALBUMIN 3.2 g/dl (3.4-5.0); BILIRUBIN,TOTAL 0.7 mg/dL (0.2-1); CALCIUM 8.3 mg/dL (8.5-10.1); CREATININE 0.7 mg/dL (0.55-1.3); TOT PROT 5.6 g/dl (6.4-8.2)
[2022-09-04] MEDS: ENOXAPARIN NA (PORCINE) 40 MG/0.4 ML DISP.SYRIN SQ SCH (10:16)
[2022-09-04] MEDS: QUEtiapine FUMARATE 25 MG TABLET PO SCH ×2 (10:16→21:12)
[2022-09-04] MEDS: levETIRAcetam 500 MG TABLET (FP) PO SCH ×2 (10:16→21:12)
[2022-09-04] MEDS: ASPIRIN COATED 81 MG TABLET.EC PO SCH (10:16)
[2022-09-04] MEDS: CARVEDILOL 12.5 MG TABLET (FP) PO SCH ×2 (13:18→21:12)
[2022-09-04] MEDS: LISINOPRIL 20 MG TABLET PO SCH (13:18)
[2022-09-04] MEDS: CLOPIDOGREL BISULFATE 75 MG TABLET (FP) PO SCH (17:43)
[2022-09-04] MEDS: ATORVASTATIN CA 80 MG TABLET (FP) PO SCH (21:11)
[2022-09-04] MEDS: TAMSULOSIN HCL 0.4 MG CAP PO SCH (21:12)
[2022-09-05] MEDS: DEXTROSE 5%-LACTATED RINGERS 1,000 ML IV SCH ×2 (02:30→19:47)
[2022-09-05] MEDS: INSULIN SLIDING SCALE (NOVOLOG) 1 VIAL SQ SCH ×4 (06:52→21:11)
[2022-09-05] MEDS: CLOPIDOGREL BISULFATE 75 MG TABLET (FP) PO SCH (09:45)
[2022-09-05] MEDS: levETIRAcetam 500 MG TABLET (FP) PO SCH (09:45)
[2022-09-05] MEDS: ASPIRIN COATED 81 MG TABLET.EC PO SCH (09:46)
[2022-09-05] MEDS: LISINOPRIL 20 MG TABLET PO SCH (09:46)
[2022-09-05] MEDS: QUEtiapine FUMARATE 25 MG TABLET PO SCH ×2 (09:46→21:11)
[2022-09-05] MEDS: ENOXAPARIN NA (PORCINE) 40 MG/0.4 ML DISP.SYRIN SQ SCH (09:46)
[2022-09-05] MEDS: CARVEDILOL 12.5 MG TABLET (FP) PO SCH ×2 (09:47→21:11)
[2022-09-05] MEDS: ATORVASTATIN CA 80 MG TABLET (FP) PO SCH (21:11)
[2022-09-05] MEDS: TAMSULOSIN HCL 0.4 MG CAP PO SCH (21:11)
[2022-09-06] MEDS: INSULIN SLIDING SCALE (NOVOLOG) 1 VIAL SQ SCH ×4 (06:04→22:11)
[2022-09-06] MEDS: CARVEDILOL 12.5 MG TABLET (FP) PO SCH ×3 (09:02→22:12)
[2022-09-06] MEDS: CITALOPRAM HYDROBROMIDE 10 MG TABLET PO SCH (09:02)
[2022-09-06] MEDS: ASPIRIN COATED 81 MG TABLET.EC PO SCH (09:02)
[2022-09-06] MEDS: ENOXAPARIN NA (PORCINE) 40 MG/0.4 ML DISP.SYRIN SQ SCH (09:02)
[2022-09-06] MEDS: LISINOPRIL 20 MG TABLET PO SCH (09:03)
[2022-09-06] MEDS: CLOPIDOGREL BISULFATE 75 MG TABLET (FP) PO SCH (09:03)
[2022-09-06] MEDS: QUEtiapine FUMARATE 25 MG TABLET PO SCH ×2 (09:03→22:12)
[2022-09-06] MEDS: TAMSULOSIN HCL 0.4 MG CAP PO SCH (22:12)
[2022-09-06] MEDS: ATORVASTATIN CA 80 MG TABLET (FP) PO SCH (22:12)
[2022-09-07] MEDS: INSULIN SLIDING SCALE (NOVOLOG) 1 VIAL SQ SCH ×4 (06:00→23:08)
[2022-09-07] MEDS: TAMSULOSIN HCL 0.4 MG CAP PO SCH (07:05)
[2022-09-07] MEDS: ATORVASTATIN CA 80 MG TABLET (FP) PO SCH (07:06)
[2022-09-07] MEDS: QUEtiapine FUMARATE 25 MG TABLET PO SCH ×3 (07:06→22:00)
[2022-09-07] MEDS: ENOXAPARIN NA (PORCINE) 40 MG/0.4 ML DISP.SYRIN SQ SCH (09:41)
[2022-09-07] MEDS: CARVEDILOL 12.5 MG TABLET (FP) PO SCH ×2 (09:42→21:58)
[2022-09-07] MEDS: CITALOPRAM HYDROBROMIDE 10 MG TABLET PO SCH (09:42)
[2022-09-07] MEDS: CLOPIDOGREL BISULFATE 75 MG TABLET (FP) PO SCH (09:42)
[2022-09-07] MEDS: ASPIRIN COATED 81 MG TABLET.EC PO SCH (09:42)
[2022-09-07] MEDS: LISINOPRIL 20 MG TABLET PO SCH (09:42)
[2022-09-07] MEDS ORDERED: INSULIN (NOVOLOG) ASPART 100 UNITS/ML 10ML VIAL ONE (11:13)
[2022-09-07] MEDS ORDERED: TAMSULOSIN HCL 0.4 MG CAP PO SCH (22:00)
[2022-09-07] MEDS ORDERED: ATORVASTATIN CA 80 MG TABLET (FP) PO SCH (22:00)
[2022-09-08] MEDS: INSULIN SLIDING SCALE (NOVOLOG) 1 VIAL SQ SCH ×2 (06:43→11:25)
[2022-09-08] MEDS: QUEtiapine FUMARATE 25 MG TABLET PO SCH (10:04)
[2022-09-08] MEDS: LISINOPRIL 20 MG TABLET PO SCH (10:04)
[2022-09-08] MEDS: ASPIRIN COATED 81 MG TABLET.EC PO SCH (10:04)
[2022-09-08] MEDS: CLOPIDOGREL BISULFATE 75 MG TABLET (FP) PO SCH (10:04)
[2022-09-08] MEDS: ENOXAPARIN NA (PORCINE) 40 MG/0.4 ML DISP.SYRIN SQ SCH (10:04)
[2022-09-08] MEDS: CARVEDILOL 12.5 MG TABLET (FP) PO SCH (10:04)
[2022-09-08] MEDS: CITALOPRAM HYDROBROMIDE 10 MG TABLET PO SCH (10:04)
[2022-09-08 11:11] VITALS: BP 130/72; PULSE 60; RESP 18; TEMP 97.6
[2022-09-08 12:00] VITALS: BMI 23.1
== END 2022-09-08 13:29 | disposition home health service (06) ==
LOC: JER 18:36 → UNDOADMOB 22:14 → JERBED 22:14 → INTOOBSV 22:14 → JERBED 09-02 00:39 → UNDOADMOB 09-02 00:39 → J2W 09-02 15:51 → JERBED 09-02 15:51 → OBSVTOIN 09-03 15:29 → INTOOBSV 09-03 15:29 → J7W 09-06 10:50 → J2W 09-06 10:50 → J7W 09-06 13:46 → JERBED 09-06 13:46 → J2W 09-06 13:46
PROVIDERS: ADMIT Internal Medicine
PROC: 3E033GC Introduction of Other Therapeutic Substance into Peripheral Vein, Percutaneous Approach (ICD-10-PCS; principal; 2022-09-06)
PROC: 3E023GC Introduction of Other Therapeutic Substance into Muscle, Percutaneous Approach (ICD-10-PCS; 2022-09-06)
PROC: 3E013GC Introduction of Other Therapeutic Substance into Subcutaneous Tissue, Percutaneous Approach (ICD-10-PCS; 2022-09-06)
DX: R41.82 Altered mental status, unspecified (principal); G92.9 Unspecified toxic encephalopathy; I10 Essential (primary) hypertension; E11.9 Type 2 diabetes mellitus without complications; E78.5 Hyperlipidemia, unspecified; N40.0 Benign prostatic hyperplasia without lower urinary tract symptoms; I69.351 Hemiplegia and hemiparesis following cerebral infarction affecting right dominant side; Z91.81 History of falling; Z79.84 Long term (current) use of oral hypoglycemic drugs; G93.89 Other specified disorders of brain; G30.9 Alzheimer's disease, unspecified; F02.80 Dementia in other diseases classified elsewhere, unspecified severity, without behavioral disturbance, psychotic disturbance, mood disturbance, and anxiety; G40.909 Epilepsy, unspecified, not intractable, without status epilepticus
CPT/HCPCS: 0241U-QW; 36415; 70450-TC; 70544-TC; 70551-TC; 71045-TC-FY; 71250-TC; 74230-TC-FY; 80048; 80053; 80061; 81003; 82136; 82550; 82607; 82962; 83036; 83735; 83918; 84100; 84443; 84484; 85025; 85610; 85730; 86780; 86850; 86900; 86901; 87086; 92611-GN; 93005; 93010; 93880-TC; 97161-GP; 99285-25; G0378

== ENCOUNTER 2022-12-01 15:42 | Inpatient (IN) | payer OTHER ==
[2022-12-01] MEDS ORDERED: SODIUM CHLORIDE 1,000 ML IV SCH (16:00)
[2022-12-01 16:50] LABS: BASO % 0.7 % (0-2.0); EOS % 6.7 % (0-4.5); HEMATOCRIT 38.6 % (35.4-49); MCH 30.1 pg (25.7-33.7); MCHC 33.8 g/dl (32.0-35.9); MEAN CELL VOLUME 89.2 fl (80-96); MEAN PLT VOLUME 7.6 fl (7.5-11.1); MONO % 6.8 % (3.8-10.2); NEUT % 54.8 % (42.8-82.8); PLATELET COUNT 178 10^3/uL (134-434); RBC 4.33 M/mm3 (4.00-5.60); RDW 14.2 % (11.9-15.9); WHITE BLOOD COUNT 4.5 K/mm3 (4.0-10.0)
[2022-12-01 17:07] LABS: INR 1.22 (0.83-1.09); PROTHROMBIN TIME (PATIENT) 14.1 SEC (9.7-13.0)
[2022-12-01 17:09] LABS: ACTIVATED PTT 32.9 SECONDS (25.2-36.5)
[2022-12-01] MEDS ORDERED: SODIUM CHLORIDE 0.9% 1000 ML INFUS.BAG IV ONE (17:53)
[2022-12-01 18:01] LABS: POTASSIUM 3.9 mmol/L (3.5-5.1)
[2022-12-01 18:03] LABS: ALBUMIN 3.1 g/dl (3.4-5.0); BLOOD UREA NITROGEN 15.4 mg/dL (7-18); CALCIUM 8.4 mg/dL (8.5-10.1)
[2022-12-01 18:06] LABS: CREATININE 0.8 mg/dL (0.55-1.3)
[2022-12-01 18:08] LABS: BILIRUBIN,TOTAL 0.6 mg/dL (0.2-1); TOT PROT 5.4 g/dl (6.4-8.2)
[2022-12-01 21:05] LABS: EPI CELLS 1 /uL (0-25.1); HYALINE CASTS 3 /uL (0-3.1); PH,URINE 6.5 (5.0-8.0); URINE APPEARANCE Clear; URINE BACTERIA >9,000 /uL (0-1359); URINE BILIRUBIN Negative (NEGATIVE); URINE COLOR Yellow; URINE GLUCOSE (UA) Negative (NEGATIVE); URINE KETONE Negative (NEGATIVE); URINE LEUK ESTERASE Small (NEGATIVE); URINE NITRITE Negative (NEGATIVE); URINE PROTEIN Trace (NEGATIVE); URINE WBC 578 /uL (0-25.8)
[2022-12-01] MEDS ORDERED: LORazepam 2 MG/ML SDV VIAL IVPUSH PRN (22:07)
[2022-12-01] MEDS: INSULIN SLIDING SCALE (NOVOLOG) 1 VIAL SQ SCH (22:36)
[2022-12-01] MEDS: ATORVASTATIN CA 40 MG TABLET (FP) PO SCH (22:36)
[2022-12-01 22:49] LABS: URINE RBC 22 /uL (0-23.9)
[2022-12-02] MEDS ORDERED: levETIRAcetam 500 MG/5 ML INJECTION VIAL IVPB ONE
[2022-12-02] MEDS: INSULIN SLIDING SCALE (NOVOLOG) 1 VIAL SQ SCH ×2 (06:19→12:11)
[2022-12-02] MEDS ORDERED: DEXTROSE 50%-WATER 25 GM/50 ML DISP.SYRIN IVPUSH PRN (06:20)
[2022-12-02 07:41] LABS: POTASSIUM 3.7 mmol/L (3.5-5.1)
[2022-12-02 07:43] LABS: CALCIUM 8.3 mg/dL (8.5-10.1)
[2022-12-02 07:44] LABS: ALBUMIN 3.1 g/dl (3.4-5.0); MAGNESIUM 1.9 mg/dL (1.8-2.4)
[2022-12-02 07:46] LABS: BLOOD UREA NITROGEN 14.9 mg/dL (7-18)
[2022-12-02 07:47] LABS: CREATININE 0.7 mg/dL (0.55-1.3); PHOSPHOROUS 3.8 mg/dL (2.5-4.9)
[2022-12-02 07:48] LABS: BILIRUBIN,TOTAL 0.6 mg/dL (0.2-1); TOT PROT 5.3 g/dl (6.4-8.2)
[2022-12-02 08:01] LABS: BASO % 0.5 % (0-2.0); EOS % 5.6 % (0-4.5); HEMATOCRIT 37.5 % (35.4-49); HEMOGLOBIN 13.1 GM/dL (11.7-16.9); LYMPH % 28.1 % (8-40); MCH 31.2 pg (25.7-33.7); MEAN CELL VOLUME 89.1 fl (80-96); MONO % 5.6 % (3.8-10.2); NEUT % 60.2 % (42.8-82.8); PLATELET COUNT 158 10^3/uL (134-434); RBC 4.21 M/mm3 (4.00-5.60); RDW 13.6 % (11.9-15.9); WHITE BLOOD COUNT 5.5 K/mm3 (4.0-10.0)
[2022-12-02] MEDS: ASPIRIN 81 MG CHEWABLE TABLETS PO SCH (09:35)
[2022-12-02] MEDS: TAMSULOSIN HCL 0.4 MG CAP PO SCH (09:35)
[2022-12-02] MEDS: CLOPIDOGREL BISULFATE 75 MG TABLET (FP) PO SCH (09:36)
[2022-12-02] MEDS: LISINOPRIL 20 MG TABLET PO SCH (09:36)
[2022-12-02] MEDS: ENOXAPARIN NA (PORCINE) 40 MG/0.4 ML DISP.SYRIN SQ SCH (09:36)
[2022-12-02] MEDS: CARVEDILOL 25 MG TABLET (FP) PO SCH (09:38)
[2022-12-02] MEDS ORDERED: levETIRAcetam 500 MG/5 ML INJECTION VIAL IVPB SCH (10:00)
[2022-12-02] MEDS ORDERED: CEFTRIAXONE 1 GM in DEXTROSE 5%-WATER - 50 ML IVPB ONE ×2 (10:00)
[2022-12-02] MEDS: ATORVASTATIN CA 40 MG TABLET (FP) PO SCH (21:57)
[2022-12-02] MEDS ORDERED: HEPARIN NA (PORCINE) 5,000 UNITS/ML 1ML VIAL SQ SCH (22:00)
[2022-12-03] MEDS: ENOXAPARIN NA (PORCINE) 40 MG/0.4 ML DISP.SYRIN SQ SCH (09:21)
[2022-12-03] MEDS: ASPIRIN 81 MG CHEWABLE TABLETS PO SCH (09:21)
[2022-12-03] MEDS: TAMSULOSIN HCL 0.4 MG CAP PO SCH (09:21)
[2022-12-03] MEDS: LISINOPRIL 20 MG TABLET PO SCH (09:21)
[2022-12-03] MEDS: CLOPIDOGREL BISULFATE 75 MG TABLET (FP) PO SCH (09:21)
[2022-12-03] MEDS: CARVEDILOL 25 MG TABLET (FP) PO SCH (10:50)
[2022-12-03] MEDS: ESCITALOPRAM OXALATE 10 MG TABLET PO SCH (12:53)
[2022-12-03] MEDS: ATORVASTATIN CA 40 MG TABLET (FP) PO SCH (22:08)
[2022-12-04 07:36] LABS: BASO % 0.5 % (0-2.0); EOS % 4.7 % (0-4.5); HEMATOCRIT 37.6 % (35.4-49); HEMOGLOBIN 13.3 GM/dL (11.7-16.9); MCH 31.2 pg (25.7-33.7); MCHC 35.3 g/dl (32.0-35.9); MEAN CELL VOLUME 88.4 fl (80-96); MEAN PLT VOLUME 8.1 fl (7.5-11.1); MONO % 5.7 % (3.8-10.2); NEUT % 62.1 % (42.8-82.8); PLATELET COUNT 158 10^3/uL (134-434); RBC 4.26 M/mm3 (4.00-5.60); RDW 13.6 % (11.9-15.9); WHITE BLOOD COUNT 6.5 K/mm3 (4.0-10.0)
[2022-12-04 07:51] LABS: POTASSIUM 3.5 mmol/L (3.5-5.1)
[2022-12-04 07:55] LABS: CALCIUM 8.3 mg/dL (8.5-10.1)
[2022-12-04 07:56] LABS: BLOOD UREA NITROGEN 15.6 mg/dL (7-18)
[2022-12-04 07:59] LABS: CREATININE 0.6 mg/dL (0.55-1.3)
[2022-12-04] MEDS ORDERED: LISINOPRIL 20 MG TABLET PO ONE (08:24)
[2022-12-04] MEDS: TAMSULOSIN HCL 0.4 MG CAP PO SCH (08:35)
[2022-12-04] MEDS: ENOXAPARIN NA (PORCINE) 40 MG/0.4 ML DISP.SYRIN SQ SCH (09:59)
[2022-12-04] MEDS: ASPIRIN 81 MG CHEWABLE TABLETS PO SCH (10:00)
[2022-12-04] MEDS: ESCITALOPRAM OXALATE 10 MG TABLET PO SCH (10:00)
[2022-12-04] MEDS: CLOPIDOGREL BISULFATE 75 MG TABLET (FP) PO SCH (10:00)
[2022-12-04] MEDS: LISINOPRIL 20 MG TABLET PO SCH (10:00)
[2022-12-04] MEDS: CARVEDILOL 25 MG TABLET (FP) PO SCH (10:01)
[2022-12-04] MEDS ORDERED: SODIUM CHLORIDE 1,000 ML IV SCH (12:00)
[2022-12-04] MEDS ORDERED: SODIUM CHLORIDE 1,000 ML IV STA (12:31)
[2022-12-04] MEDS: CEFTRIAXONE 1 GM in DEXTROSE 5%-WATER - 50 ML IVPB SCH (12:33)
[2022-12-04] MEDS: POTASSIUM CHLORIDE ORAL LIQUID 20 MEQ/15 ML PO ONE ×3 (17:22→17:46)
[2022-12-04] MEDS ORDERED: POTASSIUM CHLORIDE TABS 20 MEQ TABLET.ER (FP) PO ONE (17:41)
[2022-12-04] MEDS: ATORVASTATIN CA 40 MG TABLET (FP) PO SCH (21:26)
[2022-12-05 07:27] LABS: HEMATOCRIT 38.4 % (35.4-49); HEMOGLOBIN 13.4 GM/dL (11.7-16.9); MEAN CELL VOLUME 88.7 fl (80-96); PLATELET COUNT 157 10^3/uL (134-434); RBC 4.33 M/mm3 (4.00-5.60); WHITE BLOOD COUNT 5.4 K/mm3 (4.0-10.0)
[2022-12-05 07:33] LABS: POTASSIUM 3.9 mmol/L (3.5-5.1)
[2022-12-05 07:37] LABS: CALCIUM 8.5 mg/dL (8.5-10.1)
[2022-12-05 07:38] LABS: BLOOD UREA NITROGEN 10.9 mg/dL (7-18); MAGNESIUM 2.1 mg/dL (1.8-2.4)
[2022-12-05 07:41] LABS: CREATININE 0.6 mg/dL (0.55-1.3); PHOSPHOROUS 3.3 mg/dL (2.5-4.9)
[2022-12-05] MEDS: TAMSULOSIN HCL 0.4 MG CAP PO SCH (08:59)
[2022-12-05] MEDS: CEFTRIAXONE 1 GM in DEXTROSE 5%-WATER - 50 ML IVPB SCH (09:36)
[2022-12-05] MEDS: ENOXAPARIN NA (PORCINE) 40 MG/0.4 ML DISP.SYRIN SQ SCH (09:36)
[2022-12-05] MEDS: ESCITALOPRAM OXALATE 10 MG TABLET PO SCH (09:37)
[2022-12-05] MEDS: CLOPIDOGREL BISULFATE 75 MG TABLET (FP) PO SCH (09:38)
[2022-12-05] MEDS: ASPIRIN 81 MG CHEWABLE TABLETS PO SCH (09:38)
[2022-12-05] MEDS: CARVEDILOL 25 MG TABLET (FP) PO SCH (09:38)
[2022-12-05] MEDS: LISINOPRIL 20 MG TABLET PO SCH (09:39)
[2022-12-05] MEDS: THIAMINE HCL 200 MG/2 ML VIAL IVPB SCH ×2 (14:44→21:37)
[2022-12-05] MEDS: ATORVASTATIN CA 40 MG TABLET (FP) PO SCH (21:37)
[2022-12-06] MEDS: THIAMINE HCL 200 MG/2 ML VIAL IVPB SCH ×3 (05:12→23:31)
[2022-12-06 07:59] LABS: HEMATOCRIT 40.9 % (35.4-49); HEMOGLOBIN 14.1 GM/dL (11.7-16.9); MCH 31.1 pg (25.7-33.7); MCHC 34.5 g/dl (32.0-35.9); MEAN CELL VOLUME 90.1 fl (80-96); MEAN PLT VOLUME 8.5 fl (7.5-11.1); PLATELET COUNT 50 10^3/uL (134-434); RBC 4.54 M/mm3 (4.00-5.60); RDW 13.8 % (11.9-15.9); WHITE BLOOD COUNT 5.4 K/mm3 (4.0-10.0)
[2022-12-06] MEDS: TAMSULOSIN HCL 0.4 MG CAP PO SCH (08:00)
[2022-12-06 08:14] LABS: POTASSIUM 3.6 mmol/L (3.5-5.1)
[2022-12-06 08:21] LABS: CALCIUM 8.4 mg/dL (8.5-10.1)
[2022-12-06 08:22] LABS: BLOOD UREA NITROGEN 12.2 mg/dL (7-18); MAGNESIUM 1.9 mg/dL (1.8-2.4)
[2022-12-06 08:25] LABS: CREATININE 0.6 mg/dL (0.55-1.3); PHOSPHOROUS 3.5 mg/dL (2.5-4.9)
[2022-12-06] MEDS: CEFTRIAXONE 1 GM in DEXTROSE 5%-WATER - 50 ML IVPB SCH (10:00)
[2022-12-06] MEDS: ESCITALOPRAM OXALATE 10 MG TABLET PO SCH (10:23)
[2022-12-06] MEDS: CLOPIDOGREL BISULFATE 75 MG TABLET (FP) PO SCH (10:23)
[2022-12-06] MEDS: CARVEDILOL 25 MG TABLET (FP) PO SCH (10:23)
[2022-12-06] MEDS: ASPIRIN 81 MG CHEWABLE TABLETS PO SCH (10:24)
[2022-12-06] MEDS: LISINOPRIL 20 MG TABLET PO SCH (10:24)
[2022-12-06] MEDS: ENOXAPARIN NA (PORCINE) 40 MG/0.4 ML DISP.SYRIN SQ SCH (10:24)
[2022-12-06] MEDS ORDERED: AMOXICILLIN 500 MG CAPSULE (FP) PO SCH (14:00)
[2022-12-06] MEDS ORDERED: DEXTROSE 50%-WATER 25 GM/50 ML DISP.SYRIN IVPUSH PRN (20:24)
[2022-12-06 23:30] VITALS: BMI 22.2
[2022-12-06] MEDS: ATORVASTATIN CA 40 MG TABLET (FP) PO SCH (23:30)
[2022-12-06] MEDS: AMOXICILLIN 500 MG CAPSULE (FP) PO SCH (23:31)
[2022-12-07] MEDS: AMOXICILLIN 500 MG CAPSULE (FP) PO SCH ×5 (07:02→23:26)
[2022-12-07] MEDS: THIAMINE HCL 200 MG/2 ML VIAL IVPB SCH ×3 (07:02→22:25)
[2022-12-07] MEDS ORDERED: CYANOCOBALAMIN (VITAMIN B-12) 1000 MCG/1 ML VIAL IM ONE (08:30)
[2022-12-07 08:43] VITALS: RESP 18
[2022-12-07] MEDS: TAMSULOSIN HCL 0.4 MG CAP PO SCH (09:23)
[2022-12-07] MEDS ORDERED: ENOXAPARIN NA (PORCINE) 40 MG/0.4 ML DISP.SYRIN SQ SCH (10:00)
[2022-12-07] MEDS: ESCITALOPRAM OXALATE 10 MG TABLET PO SCH (10:27)
[2022-12-07] MEDS: CARVEDILOL 25 MG TABLET (FP) PO SCH (10:27)
[2022-12-07] MEDS: CLOPIDOGREL BISULFATE 75 MG TABLET (FP) PO SCH (10:27)
[2022-12-07] MEDS: ASPIRIN 81 MG CHEWABLE TABLETS PO SCH (10:28)
[2022-12-07] MEDS: LISINOPRIL 20 MG TABLET PO SCH (10:28)
[2022-12-07 11:19] LABS: BASO % 0.3 % (0-2.0); HEMATOCRIT 42.5 % (35.4-49); HEMOGLOBIN 14.5 GM/dL (11.7-16.9); LYMPH % 24.5 % (8-40); MCH 30.7 pg (25.7-33.7); MCHC 34.2 g/dl (32.0-35.9); MEAN CELL VOLUME 89.6 fl (80-96); MEAN PLT VOLUME 8.3 fl (7.5-11.1); MONO % 5.5 % (3.8-10.2); NEUT % 65.7 % (42.8-82.8); PLATELET COUNT 178 10^3/uL (134-434); RBC 4.74 M/mm3 (4.00-5.60); RDW 13.7 % (11.9-15.9); WHITE BLOOD COUNT 6.8 K/mm3 (4.0-10.0)
[2022-12-07 11:40] LABS: POTASSIUM 3.8 mmol/L (3.5-5.1)
[2022-12-07 11:42] LABS: BLOOD UREA NITROGEN 15.1 mg/dL (7-18); CALCIUM 8.9 mg/dL (8.5-10.1)
[2022-12-07 11:46] LABS: CREATININE 0.6 mg/dL (0.55-1.3)
[2022-12-07] MEDS: ATORVASTATIN CA 40 MG TABLET (FP) PO SCH (22:25)
[2022-12-08] MEDS: THIAMINE HCL 200 MG/2 ML VIAL IVPB SCH (07:05)
[2022-12-08] MEDS: AMOXICILLIN 500 MG CAPSULE (FP) PO SCH (07:05)
[2022-12-08 07:37] LABS: HEMOGLOBIN 13.8 GM/dL (11.7-16.9); MCH 30.5 pg (25.7-33.7); MCHC 34.4 g/dl (32.0-35.9); MEAN CELL VOLUME 88.8 fl (80-96); MEAN PLT VOLUME 7.6 fl (7.5-11.1); PLATELET COUNT 175 10^3/uL (134-434); RBC 4.51 M/mm3 (4.00-5.60); RDW 14.1 % (11.9-15.9); WHITE BLOOD COUNT 6.1 K/mm3 (4.0-10.0)
[2022-12-08 07:43] LABS: POTASSIUM 3.9 mmol/L (3.5-5.1)
[2022-12-08 07:48] LABS: CALCIUM 8.8 mg/dL (8.5-10.1); MAGNESIUM 2.1 mg/dL (1.8-2.4)
[2022-12-08 07:49] LABS: BLOOD UREA NITROGEN 14.6 mg/dL (7-18)
[2022-12-08 07:51] LABS: CREATININE 0.6 mg/dL (0.55-1.3); PHOSPHOROUS 3.9 mg/dL (2.5-4.9)
[2022-12-08 08:59] VITALS: BP 145/90; PULSE 58; TEMP 97.4
[2022-12-08] MEDS: ASPIRIN 81 MG CHEWABLE TABLETS PO SCH (09:42)
[2022-12-08] MEDS: CARVEDILOL 25 MG TABLET (FP) PO SCH (09:42)
[2022-12-08] MEDS: ESCITALOPRAM OXALATE 10 MG TABLET PO SCH (09:42)
[2022-12-08] MEDS: TAMSULOSIN HCL 0.4 MG CAP PO SCH (09:42)
[2022-12-08] MEDS: LISINOPRIL 20 MG TABLET PO SCH (09:43)
[2022-12-08] MEDS: CLOPIDOGREL BISULFATE 75 MG TABLET (FP) PO SCH (09:43)
== END 2022-12-08 10:57 | disposition home health service (06) | DRG 689 ==
LOC: JER 15:42 → JERBED 18:43 → OBSVTOIN 20:48 → J4W 22:00 → J7W 12-06 16:20
PROVIDERS: ADMIT Internal Medicine; ATTEND Internal Medicine
DX: N39.0 Urinary tract infection, site not specified (principal); G93.41 Metabolic encephalopathy; I69.351 Hemiplegia and hemiparesis following cerebral infarction affecting right dominant side; R47.01 Aphasia; E78.5 Hyperlipidemia, unspecified; I10 Essential (primary) hypertension; E11.9 Type 2 diabetes mellitus without complications; B95.2 Enterococcus as the cause of diseases classified elsewhere; N40.0 Benign prostatic hyperplasia without lower urinary tract symptoms; I65.29 Occlusion and stenosis of unspecified carotid artery; R26.2 Difficulty in walking, not elsewhere classified; M21.371 Foot drop, right foot; R00.1 Bradycardia, unspecified; R41.82 Altered mental status, unspecified; D69.6 Thrombocytopenia, unspecified; F32.A Depression, unspecified
CPT/HCPCS: 36415; 70450-TC; 70496-TC; 70498-TC; 70551-TC; 80048; 80053; 80061; 81003; 82550; 82607; 82746; 82962; 83036; 83735; 84100; 84443; 84484; 85025; 85027; 85610; 85730; 86850; 86900; 86901; 87086; 87186; 93005; 93010; 97116-GP; 97161-GP; 99285-25; C9803-CS; G0378; U0003; U0005

== ENCOUNTER 2023-05-25 16:25 | Observation (INO) | payer BC, OTHER ==
[2023-05-25 16:45] VITALS: BMI 23.7
[2023-05-25 17:37] LABS: BASO % 0.6 % (0-2.0); EOS % 6.4 % (0-4.5); HEMATOCRIT 41.8 % (35.4-49); HEMOGLOBIN 14.5 GM/dL (11.7-16.9); LYMPH % 29.3 % (8-40); MCH 31.5 pg (25.7-33.7); MCHC 34.6 g/dl (32.0-35.9); MEAN PLT VOLUME 7.3 fl (7.5-11.1); MONO % 5.7 % (3.8-10.2); PLATELET COUNT 175 10^3/uL (134-434); RBC 4.59 M/mm3 (4.00-5.60); RDW 13.5 % (11.9-15.9); WHITE BLOOD COUNT 4.5 K/mm3 (4.0-10.0)
[2023-05-25 18:07] LABS: POTASSIUM 4.1 mmol/L (3.5-5.1)
[2023-05-25 18:09] LABS: ALBUMIN 3.3 g/dl (3.4-5.0); CALCIUM 8.4 mg/dL (8.5-10.1)
[2023-05-25 18:10] LABS: BLOOD UREA NITROGEN 15.7 mg/dL (7-18)
[2023-05-25 18:13] LABS: CREATININE 0.8 mg/dL (0.55-1.3)
[2023-05-25 18:14] LABS: BILIRUBIN,TOTAL 0.6 mg/dL (0.2-1); TOT PROT 5.8 g/dl (6.4-8.2)
[2023-05-25] MEDS ORDERED: levETIRAcetam 500 MG/5 ML INJECTION VIAL IVPB ONE ×2 (19:03→19:55)
[2023-05-25 21:04] LABS: PH,URINE 6.5 (5.0-8.0); URINE APPEARANCE CLEAR; URINE BILIRUBIN NEGATIVE (NEGATIVE); URINE COLOR YELLOW; URINE GLUCOSE (UA) NEGATIVE (NEGATIVE); URINE KETONE NEGATIVE (NEGATIVE); URINE LEUK ESTERASE NEGATIVE (NEGATIVE); URINE NITRITE NEGATIVE (NEGATIVE); URINE PROTEIN NEGATIVE (NEGATIVE)
[2023-05-25] MEDS ORDERED: LISINOPRIL 20 MG TABLET PO ONE (22:00)
[2023-05-25] MEDS: ATORVASTATIN CA 40 MG TABLET (FP) PO SCH (22:46)
[2023-05-25] MEDS: levETIRAcetam 250 MG TABLET PO SCH (22:46)
[2023-05-26 07:30] LABS: BASO % 0.6 % (0-2.0); EOS % 5.3 % (0-4.5); HEMOGLOBIN 13.7 GM/dL (11.7-16.9); LYMPH % 29.9 % (8-40); MCH 31.4 pg (25.7-33.7); MCHC 34.2 g/dl (32.0-35.9); MEAN CELL VOLUME 91.9 fl (80-96); MEAN PLT VOLUME 7.8 fl (7.5-11.1); MONO % 4.6 % (3.8-10.2); NEUT % 59.6 % (42.8-82.8); PLATELET COUNT 145 10^3/uL (134-434); RBC 4.35 M/mm3 (4.00-5.60); RDW 13.1 % (11.9-15.9); WHITE BLOOD COUNT 6.8 K/mm3 (4.0-10.0)
[2023-05-26 07:53] LABS: POTASSIUM 3.3 mmol/L (3.5-5.1)
[2023-05-26 07:59] LABS: ALBUMIN 3.1 g/dl (3.4-5.0); BLOOD UREA NITROGEN 12.2 mg/dL (7-18); CALCIUM 7.8 mg/dL (8.5-10.1); MAGNESIUM 1.8 mg/dL (1.8-2.4)
[2023-05-26 08:01] LABS: CREATININE 0.5 mg/dL (0.55-1.3)
[2023-05-26 08:02] LABS: PHOSPHOROUS 2.7 mg/dL (2.5-4.9)
[2023-05-26 08:03] LABS: BILIRUBIN,TOTAL 0.8 mg/dL (0.2-1); TOT PROT 5.2 g/dl (6.4-8.2)
[2023-05-26] MEDS: ENOXAPARIN NA (PORCINE) 40 MG/0.4 ML DISP.SYRIN SQ SCH (09:53)
[2023-05-26] MEDS: CLOPIDOGREL BISULFATE 75 MG TABLET (FP) PO SCH (09:54)
[2023-05-26] MEDS: ASPIRIN 81 MG CHEWABLE TABLETS PO SCH (09:54)
[2023-05-26] MEDS: levETIRAcetam 250 MG TABLET PO SCH ×2 (09:54→21:12)
[2023-05-26] MEDS ORDERED: LISINOPRIL 20 MG TABLET PO SCH (10:00)
[2023-05-26] MEDS ORDERED: CARVEDILOL 25 MG TABLET (FP) PO SCH ×2 (10:00→12:33)
[2023-05-26] MEDS ORDERED: POTASSIUM CHLORIDE TABS 20 MEQ TABLET.ER (FP) PO ONE (13:00)
[2023-05-26] MEDS: SODIUM CHLORIDE 1,000 ML IV SCH (13:22)
[2023-05-26] MEDS: QUEtiapine FUMARATE 25 MG TABLET PO PRN (21:11)
[2023-05-26] MEDS: CARVEDILOL 6.25 MG TABLET (FP) PO SCH (21:12)
[2023-05-26] MEDS: ATORVASTATIN CA 40 MG TABLET (FP) PO SCH (21:12)
[2023-05-27] MEDS: SODIUM CHLORIDE 1,000 ML IV SCH (00:08)
[2023-05-27 08:24] LABS: BASO % 0.4 % (0-2.0); EOS % 5.7 % (0-4.5); HEMATOCRIT 40.5 % (35.4-49); HEMOGLOBIN 13.5 GM/dL (11.7-16.9); LYMPH % 25.6 % (8-40); MCH 30.9 pg (25.7-33.7); MCHC 33.4 g/dl (32.0-35.9); MEAN CELL VOLUME 92.3 fl (80-96); MEAN PLT VOLUME 7.5 fl (7.5-11.1); MONO % 4.3 % (3.8-10.2); PLATELET COUNT 160 10^3/uL (134-434); RBC 4.39 M/mm3 (4.00-5.60); RDW 13.1 % (11.9-15.9); WHITE BLOOD COUNT 6.2 K/mm3 (4.0-10.0)
[2023-05-27] MEDS: ENOXAPARIN NA (PORCINE) 40 MG/0.4 ML DISP.SYRIN SQ SCH (09:40)
[2023-05-27] MEDS: LISINOPRIL 10 MG TABLET PO SCH (09:40)
[2023-05-27] MEDS: ASPIRIN 81 MG CHEWABLE TABLETS PO SCH (09:40)
[2023-05-27] MEDS: CARVEDILOL 6.25 MG TABLET (FP) PO SCH ×2 (09:40→21:53)
[2023-05-27] MEDS: CLOPIDOGREL BISULFATE 75 MG TABLET (FP) PO SCH (09:40)
[2023-05-27] MEDS: levETIRAcetam 250 MG TABLET PO SCH ×2 (09:40→21:52)
[2023-05-27] MEDS ORDERED: SODIUM CHLORIDE 1,000 ML IV SCH (15:30)
[2023-05-27] MEDS: POTASSIUM CHLORIDE TABS 20 MEQ TABLET.ER (FP) PO SCH (16:47)
[2023-05-27] MEDS: ATORVASTATIN CA 40 MG TABLET (FP) PO SCH (21:53)
[2023-05-27] MEDS: QUEtiapine FUMARATE 25 MG TABLET PO PRN (21:53)
[2023-05-28] MEDS: ASPIRIN 81 MG CHEWABLE TABLETS PO SCH (10:02)
[2023-05-28] MEDS: ENOXAPARIN NA (PORCINE) 40 MG/0.4 ML DISP.SYRIN SQ SCH (10:02)
[2023-05-28] MEDS: CARVEDILOL 6.25 MG TABLET (FP) PO SCH ×2 (10:02→21:41)
[2023-05-28] MEDS: POTASSIUM CHLORIDE TABS 20 MEQ TABLET.ER (FP) PO SCH (10:02)
[2023-05-28] MEDS: LISINOPRIL 10 MG TABLET PO SCH (10:02)
[2023-05-28] MEDS: CLOPIDOGREL BISULFATE 75 MG TABLET (FP) PO SCH (10:03)
[2023-05-28] MEDS: levETIRAcetam 250 MG TABLET PO SCH (10:03)
[2023-05-28] MEDS ORDERED: levETIRAcetam 250 MG TABLET PO SCH (11:48)
[2023-05-28] MEDS: ATORVASTATIN CA 40 MG TABLET (FP) PO SCH (21:41)
[2023-05-28] MEDS: levETIRAcetam 500 MG TABLET (FP) PO SCH (21:41)
[2023-05-29 06:58] LABS: HEMATOCRIT 37.1 % (35.4-49); HEMOGLOBIN 12.8 GM/dL (11.7-16.9); MCH 31.5 pg (25.7-33.7); MCHC 34.6 g/dl (32.0-35.9); MEAN CELL VOLUME 91.1 fl (80-96); MEAN PLT VOLUME 7.1 fl (7.5-11.1); PLATELET COUNT 159 10^3/uL (134-434); RBC 4.07 M/mm3 (4.00-5.60); RDW 13.3 % (11.9-15.9); WHITE BLOOD COUNT 5.3 K/mm3 (4.0-10.0)
[2023-05-29 07:13] LABS: POTASSIUM 3.6 mmol/L (3.5-5.1)
[2023-05-29 07:17] LABS: ALBUMIN 2.7 g/dl (3.4-5.0); BLOOD UREA NITROGEN 16.2 mg/dL (7-18); CALCIUM 7.7 mg/dL (8.5-10.1); MAGNESIUM 1.9 mg/dL (1.8-2.4)
[2023-05-29 07:21] LABS: BILIRUBIN,TOTAL 0.4 mg/dL (0.2-1); CREATININE 0.6 mg/dL (0.55-1.3); PHOSPHOROUS 3.1 mg/dL (2.5-4.9); TOT PROT 4.6 g/dl (6.4-8.2)
[2023-05-29] MEDS: LISINOPRIL 20 MG TABLET PO SCH (09:32)
[2023-05-29] MEDS: CARVEDILOL 6.25 MG TABLET (FP) PO SCH ×2 (09:32→21:39)
[2023-05-29] MEDS: levETIRAcetam 500 MG TABLET (FP) PO SCH (09:32)
[2023-05-29] MEDS: CLOPIDOGREL BISULFATE 75 MG TABLET (FP) PO SCH (09:32)
[2023-05-29] MEDS: POTASSIUM CHLORIDE TABS 20 MEQ TABLET.ER (FP) PO SCH (09:32)
[2023-05-29] MEDS: ENOXAPARIN NA (PORCINE) 40 MG/0.4 ML DISP.SYRIN SQ SCH (09:32)
[2023-05-29] MEDS: ASPIRIN COATED 81 MG TABLET.EC PO SCH (09:34)
[2023-05-29] MEDS: sitaGLIPtin PHOSPHATE 50 MG TABLET PO SCH (09:34)
[2023-05-29 12:20] LABS: EPI CELLS 12 /uL (0-25.1); HYALINE CASTS 5 /uL (0-3.1); URINE APPEARANCE CLEAR; URINE BACTERIA >9,000 /uL (0-1359); URINE BILIRUBIN NEGATIVE (NEGATIVE); URINE COLOR YELLOW; URINE GLUCOSE (UA) NEGATIVE (NEGATIVE); URINE KETONE NEGATIVE (NEGATIVE); URINE LEUK ESTERASE TRACE (NEGATIVE); URINE NITRITE NEGATIVE (NEGATIVE); URINE PROTEIN NEGATIVE (NEGATIVE); URINE RBC 21 /uL (0-23.9); URINE WBC 47 /uL (0-25.8)
[2023-05-29] MEDS: CEFTRIAXONE 1 GM in DEXTROSE 5%-WATER - 50 ML IVPB SCH (17:56)
[2023-05-29] MEDS: ATORVASTATIN CA 40 MG TABLET (FP) PO SCH (21:39)
[2023-05-29] MEDS: levETIRAcetam 250 MG TABLET PO SCH (21:39)
[2023-05-30] MEDS: sitaGLIPtin PHOSPHATE 50 MG TABLET PO SCH (06:07)
[2023-05-30] MEDS: CEFTRIAXONE 1 GM in DEXTROSE 5%-WATER - 50 ML IVPB SCH (09:27)
[2023-05-30] MEDS: ENOXAPARIN NA (PORCINE) 40 MG/0.4 ML DISP.SYRIN SQ SCH (09:29)
[2023-05-30] MEDS: POTASSIUM CHLORIDE TABS 20 MEQ TABLET.ER (FP) PO SCH (09:29)
[2023-05-30] MEDS: LISINOPRIL 20 MG TABLET PO SCH (09:30)
[2023-05-30] MEDS: ASPIRIN COATED 81 MG TABLET.EC PO SCH (09:30)
[2023-05-30] MEDS: levETIRAcetam 250 MG TABLET PO SCH ×2 (09:30→22:38)
[2023-05-30] MEDS: CLOPIDOGREL BISULFATE 75 MG TABLET (FP) PO SCH (09:30)
[2023-05-30] MEDS: CARVEDILOL 6.25 MG TABLET (FP) PO SCH ×2 (09:31→22:38)
[2023-05-30] MEDS: ATORVASTATIN CA 40 MG TABLET (FP) PO SCH (22:38)
[2023-05-31] MEDS: sitaGLIPtin PHOSPHATE 50 MG TABLET PO SCH (06:41)
[2023-05-31 06:54] LABS: POTASSIUM 3.9 mmol/L (3.5-5.1)
[2023-05-31 07:00] LABS: HEMATOCRIT 39.1 % (35.4-49); HEMOGLOBIN 13.1 GM/dL (11.7-16.9); MCH 30.9 pg (25.7-33.7); MCHC 33.5 g/dl (32.0-35.9); MEAN CELL VOLUME 92.3 fl (80-96); MEAN PLT VOLUME 7.6 fl (7.5-11.1); PLATELET COUNT 158 10^3/uL (134-434); RBC 4.24 M/mm3 (4.00-5.60); RDW 13.4 % (11.9-15.9); WHITE BLOOD COUNT 5.3 K/mm3 (4.0-10.0)
[2023-05-31 07:01] LABS: ALBUMIN 2.8 g/dl (3.4-5.0); BLOOD UREA NITROGEN 18.3 mg/dL (7-18)
[2023-05-31 07:04] LABS: CREATININE 0.5 mg/dL (0.55-1.3)
[2023-05-31 07:06] LABS: BILIRUBIN,TOTAL 0.5 mg/dL (0.2-1); TOT PROT 4.9 g/dl (6.4-8.2)
[2023-05-31] MEDS: CEFTRIAXONE 1 GM in DEXTROSE 5%-WATER - 50 ML IVPB SCH (11:14)
[2023-05-31] MEDS: ENOXAPARIN NA (PORCINE) 40 MG/0.4 ML DISP.SYRIN SQ SCH (11:14)
[2023-05-31] MEDS: CARVEDILOL 6.25 MG TABLET (FP) PO SCH ×2 (11:16→21:40)
[2023-05-31] MEDS: POTASSIUM CHLORIDE TABS 20 MEQ TABLET.ER (FP) PO SCH (11:16)
[2023-05-31] MEDS: levETIRAcetam 250 MG TABLET PO SCH ×2 (11:16→21:36)
[2023-05-31] MEDS: ASPIRIN COATED 81 MG TABLET.EC PO SCH (11:16)
[2023-05-31] MEDS: CLOPIDOGREL BISULFATE 75 MG TABLET (FP) PO SCH (11:16)
[2023-05-31] MEDS: LISINOPRIL 20 MG TABLET PO SCH (11:17)
[2023-05-31] MEDS: QUEtiapine FUMARATE 25 MG TABLET PO PRN (21:36)
[2023-05-31] MEDS: ATORVASTATIN CA 40 MG TABLET (FP) PO SCH (21:36)
[2023-06-01] MEDS: sitaGLIPtin PHOSPHATE 50 MG TABLET PO SCH (06:00)
[2023-06-01] MEDS: ENOXAPARIN NA (PORCINE) 40 MG/0.4 ML DISP.SYRIN SQ SCH (09:41)
[2023-06-01] MEDS: CLOPIDOGREL BISULFATE 75 MG TABLET (FP) PO SCH (09:41)
[2023-06-01] MEDS: CARVEDILOL 6.25 MG TABLET (FP) PO SCH (09:41)
[2023-06-01] MEDS: LISINOPRIL 20 MG TABLET PO SCH (09:41)
[2023-06-01] MEDS: CEFTRIAXONE 1 GM in DEXTROSE 5%-WATER - 50 ML IVPB SCH (09:41)
[2023-06-01] MEDS: ASPIRIN COATED 81 MG TABLET.EC PO SCH (09:41)
[2023-06-01] MEDS: levETIRAcetam 250 MG TABLET PO SCH (10:19)
[2023-06-01] MEDS: POTASSIUM CHLORIDE TABS 20 MEQ TABLET.ER (FP) PO SCH (10:19)
[2023-06-01 10:51] VITALS: BP 136/76; PULSE 69; RESP 18; TEMP 97.9
== END 2023-06-01 11:55 | disposition home or self-care (01) ==
LOC: JER 16:25 → JERBED 18:37 → J4S 21:30
PROVIDERS: ADMIT Internal Medicine; ATTEND Internal Medicine
PROC: 3E03329 Introduction of Other Anti-infective into Peripheral Vein, Percutaneous Approach (ICD-10-PCS; principal; 2023-05-25)
PROC: 3E023GC Introduction of Other Therapeutic Substance into Muscle, Percutaneous Approach (ICD-10-PCS; 2023-05-25)
PROC: 3E033GC Introduction of Other Therapeutic Substance into Peripheral Vein, Percutaneous Approach (ICD-10-PCS; 2023-05-25)
PROC: 3E0337Z Introduction of Electrolytic and Water Balance Substance into Peripheral Vein, Percutaneous Approach (ICD-10-PCS; 2023-05-25)
DX: R55 Syncope and collapse (principal); R73.03 Prediabetes; I10 Essential (primary) hypertension; E78.5 Hyperlipidemia, unspecified; I69.898 Other sequelae of other cerebrovascular disease; I69.851 Hemiplegia and hemiparesis following other cerebrovascular disease affecting right dominant side; R26.89 Other abnormalities of gait and mobility; N40.0 Benign prostatic hyperplasia without lower urinary tract symptoms; I70.90 Unspecified atherosclerosis; Z87.440 Personal history of urinary (tract) infections
CPT/HCPCS: 0241U-QW; 36415; 70450-TC; 71045-TC-FY; 72125-TC; 72170-TC-FY; 80053; 80177; 81003; 82962; 83036; 83735; 83970; 84100; 84439; 84443; 84484; 85025; 85027; 86140; 87086; 87186; 93005; 93010; 97116-GP; 97162-GP; 99285-25; G0378

== ENCOUNTER 2023-08-01 18:02 | Inpatient (IN) | payer OTHER, BC ==
[2023-08-01] MEDS ORDERED: HALOPERIDOL LACTATE 5 MG/ML IM ONE (19:32)
[2023-08-01] MEDS ORDERED: LORazepam 2 MG/ML SDV VIAL IM ONE (19:32)
[2023-08-01] MEDS ORDERED: HALOPERIDOL LACTATE 5 MG/ML ONE (19:35)
[2023-08-01 20:38] LABS: BASO % 0.7 % (0-2.0); EOS % 5.2 % (0-4.5); HEMATOCRIT 41.2 % (35.4-49); HEMOGLOBIN 14.2 GM/dL (11.7-16.9); LYMPH % 25.8 % (8-40); MCH 31.8 pg (25.7-33.7); MCHC 34.4 g/dl (32.0-35.9); MEAN CELL VOLUME 92.6 fl (80-96); NEUT % 63.3 % (42.8-82.8); PLATELET COUNT 197 10^3/uL (134-434); RBC 4.45 M/mm3 (4.00-5.60); RDW 13.4 % (11.9-15.9); WHITE BLOOD COUNT 5.7 K/mm3 (4.0-10.0)
[2023-08-01 20:45] LABS: INR 1.16 (0.83-1.09); PROTHROMBIN TIME (PATIENT) 13.4 SEC (9.7-13.0)
[2023-08-01 20:57] LABS: POTASSIUM 4.2 mmol/L (3.5-5.1)
[2023-08-01 20:59] LABS: CALCIUM 8.5 mg/dL (8.5-10.1)
[2023-08-01 21:00] LABS: MAGNESIUM 2.2 mg/dL (1.8-2.4)
[2023-08-01 21:03] LABS: CREATININE 0.7 mg/dL (0.55-1.3)
[2023-08-01 21:04] LABS: BILIRUBIN,TOTAL 0.5 mg/dL (0.2-1); TOT PROT 5.5 g/dl (6.4-8.2)
[2023-08-01] MEDS ORDERED: LIDOCAINE HCL 2% JELLY 11 ML TP ONE (22:33)
[2023-08-01 23:09] LABS: EPI CELLS 10 /uL (0-25.1); HYALINE CASTS 0 /uL (0-3.1); PH,URINE 5.5 (5.0-8.0); URINE APPEARANCE CLOUDY; URINE BACTERIA 4 /uL (0-1359); URINE BILIRUBIN NEGATIVE (NEGATIVE); URINE COLOR RED; URINE GLUCOSE (UA) NEGATIVE (NEGATIVE); URINE KETONE NEGATIVE (NEGATIVE); URINE LEUK ESTERASE 1+ (NEGATIVE); URINE NITRITE NEGATIVE (NEGATIVE); URINE PROTEIN 1+ (NEGATIVE); URINE RBC 16669 /uL (0-23.9); URINE WBC 25 /uL (0-25.8)
[2023-08-01 23:30] LABS: COCAINE, UR NEGATIVE (NEGATIVE); URINE BARBITURATES NEGATIVE (NEGATIVE)
[2023-08-01 23:31] LABS: METHADONE, UR NEGATIVE (NEGATIVE); PHENCYCLIDINE,URINE NEGATIVE (NEGATIVE)
[2023-08-01 23:41] LABS: URINE BENZODIAZEPINES NEGATIVE (NEGATIVE)
[2023-08-01 23:42] LABS: OPIATES, URI POSITIVE (NEGATIVE); URINE AMPHETAMINES NEGATIVE (NEGATIVE)
[2023-08-02] MEDS: INSULIN ASPART SLIDING SCALE (NOVOLOG) 1 VIAL SQ SCH ×2 (02:02→02:11)
[2023-08-02 06:41] LABS: BASO % 0.7 % (0-2.0); HEMATOCRIT 40.6 % (35.4-49); HEMOGLOBIN 13.9 GM/dL (11.7-16.9); LYMPH % 24.8 % (8-40); MCH 31.4 pg (25.7-33.7); MCHC 34.2 g/dl (32.0-35.9); MEAN CELL VOLUME 91.8 fl (80-96); MEAN PLT VOLUME 7.3 fl (7.5-11.1); MONO % 4.8 % (3.8-10.2); NEUT % 64.7 % (42.8-82.8); PLATELET COUNT 188 10^3/uL (134-434); RBC 4.42 M/mm3 (4.00-5.60); WHITE BLOOD COUNT 6.6 K/mm3 (4.0-10.0)
[2023-08-02] MEDS ORDERED: QUEtiapine FUMARATE 25 MG TABLET PO SCH (07:00)
[2023-08-02 07:05] LABS: POTASSIUM 3.3 mmol/L (3.5-5.1)
[2023-08-02 07:09] LABS: ALBUMIN 3.1 g/dl (3.4-5.0); BLOOD UREA NITROGEN 14.4 mg/dL (7-18); CALCIUM 8.5 mg/dL (8.5-10.1); MAGNESIUM 2.1 mg/dL (1.8-2.4)
[2023-08-02 07:12] LABS: CREATININE 0.5 mg/dL (0.55-1.3); PHOSPHOROUS 2.9 mg/dL (2.5-4.9)
[2023-08-02 07:14] LABS: BILIRUBIN,TOTAL 0.7 mg/dL (0.2-1); TOT PROT 5.5 g/dl (6.4-8.2)
[2023-08-02] MEDS: QUEtiapine FUMARATE 50 MG TABLET PO SCH ×2 (10:07→22:26)
[2023-08-02] MEDS: CLOPIDOGREL BISULFATE 75 MG TABLET (FP) PO SCH (10:07)
[2023-08-02] MEDS: ENOXAPARIN NA (PORCINE) 40 MG/0.4 ML DISP.SYRIN SQ SCH (10:07)
[2023-08-02] MEDS: CARVEDILOL 25 MG TABLET (FP) PO SCH ×2 (10:07→22:26)
[2023-08-02] MEDS: LISINOPRIL 20 MG TABLET PO SCH (10:07)
[2023-08-02] MEDS: levETIRAcetam 500 MG/5 ML INJECTION VIAL IVPB SCH ×2 (11:37→22:25)
[2023-08-02] MEDS: KCL 10 MEQ IVPB 10 MEQ/100 ML INFUS.BAG IVPB SCH ×2 (15:22→18:22)
[2023-08-02] MEDS: ATORVASTATIN CA 40 MG TABLET (FP) PO SCH (22:26)
[2023-08-03] MEDS ORDERED: levETIRAcetam 500 MG TABLET (FP) PO SCH (10:00)
[2023-08-03 10:11] LABS: HEMATOCRIT 41.4 % (35.4-49); HEMOGLOBIN 14.1 GM/dL (11.7-16.9); MCH 31.5 pg (25.7-33.7); MEAN CELL VOLUME 92.7 fl (80-96); MEAN PLT VOLUME 7.2 fl (7.5-11.1); PLATELET COUNT 194 10^3/uL (134-434); RBC 4.47 M/mm3 (4.00-5.60); RDW 13.1 % (11.9-15.9); WHITE BLOOD COUNT 6.5 K/mm3 (4.0-10.0)
[2023-08-03] MEDS: ENOXAPARIN NA (PORCINE) 40 MG/0.4 ML DISP.SYRIN SQ SCH (10:30)
[2023-08-03] MEDS: CARVEDILOL 25 MG TABLET (FP) PO SCH ×2 (10:30→22:35)
[2023-08-03] MEDS: PARoxetine HCL 10 MG TABLET PO SCH (10:30)
[2023-08-03] MEDS: LISINOPRIL 20 MG TABLET PO SCH (10:30)
[2023-08-03] MEDS: CLOPIDOGREL BISULFATE 75 MG TABLET (FP) PO SCH (10:30)
[2023-08-03] MEDS: QUEtiapine FUMARATE 50 MG TABLET PO SCH ×2 (10:30→22:34)
[2023-08-03 10:37] LABS: POTASSIUM 3.7 mmol/L (3.5-5.1)
[2023-08-03 11:09] LABS: CALCIUM 8.4 mg/dL (8.5-10.1)
[2023-08-03 11:10] LABS: ALBUMIN 3.1 g/dl (3.4-5.0); BLOOD UREA NITROGEN 13.4 mg/dL (7-18)
[2023-08-03 11:13] LABS: CREATININE 0.7 mg/dL (0.55-1.3)
[2023-08-03 11:14] LABS: BILIRUBIN,TOTAL 0.7 mg/dL (0.2-1); TOT PROT 5.4 g/dl (6.4-8.2)
[2023-08-03] MEDS: ATORVASTATIN CA 40 MG TABLET (FP) PO SCH (22:35)
[2023-08-04] MEDS: CARVEDILOL 25 MG TABLET (FP) PO SCH ×2 (10:10→21:47)
[2023-08-04] MEDS: QUEtiapine FUMARATE 50 MG TABLET PO SCH (10:15)
[2023-08-04] MEDS: LISINOPRIL 20 MG TABLET PO SCH (10:15)
[2023-08-04] MEDS: ENOXAPARIN NA (PORCINE) 40 MG/0.4 ML DISP.SYRIN SQ SCH (10:16)
[2023-08-04] MEDS: CLOPIDOGREL BISULFATE 75 MG TABLET (FP) PO SCH (10:16)
[2023-08-04] MEDS: PARoxetine HCL 10 MG TABLET PO SCH (10:16)
[2023-08-04 15:02] VITALS: BMI 23.0
[2023-08-04] MEDS: QUEtiapine FUMARATE 25 MG TABLET PO SCH (21:47)
[2023-08-04] MEDS: ATORVASTATIN CA 40 MG TABLET (FP) PO SCH (21:47)
[2023-08-05] MEDS ORDERED: ACETAMINOPHEN 325 MG TABLET (FP) PO PRN ×2 (01:24)
[2023-08-05] MEDS: CARVEDILOL 25 MG TABLET (FP) PO SCH (10:02)
[2023-08-05] MEDS: LISINOPRIL 20 MG TABLET PO SCH (10:07)
[2023-08-05] MEDS: CLOPIDOGREL BISULFATE 75 MG TABLET (FP) PO SCH (10:07)
[2023-08-05] MEDS: ENOXAPARIN NA (PORCINE) 40 MG/0.4 ML DISP.SYRIN SQ SCH (10:07)
[2023-08-05] MEDS: PARoxetine HCL 10 MG TABLET PO SCH (10:07)
[2023-08-05] MEDS: QUEtiapine FUMARATE 25 MG TABLET PO SCH ×2 (10:07→21:43)
[2023-08-05 14:21] VITALS: RESP 18
[2023-08-05] MEDS: CARVEDILOL 12.5 MG TABLET (FP) PO SCH (21:43)
[2023-08-05] MEDS: ATORVASTATIN CA 40 MG TABLET (FP) PO SCH (21:44)
[2023-08-06 07:07] VITALS: BP 118/67; PULSE 53; TEMP 97.7
[2023-08-06] MEDS: PARoxetine HCL 10 MG TABLET PO SCH (09:42)
[2023-08-06] MEDS: CLOPIDOGREL BISULFATE 75 MG TABLET (FP) PO SCH (09:42)
[2023-08-06] MEDS: LISINOPRIL 20 MG TABLET PO SCH (09:42)
[2023-08-06] MEDS: CARVEDILOL 12.5 MG TABLET (FP) PO SCH (09:43)
[2023-08-06] MEDS: QUEtiapine FUMARATE 25 MG TABLET PO SCH (09:44)
[2023-08-06] MEDS: ENOXAPARIN NA (PORCINE) 40 MG/0.4 ML DISP.SYRIN SQ SCH (09:44)
== END 2023-08-06 11:52 | DRG 884 ==
LOC: JER 18:02 → JERBED 22:34 → J8W 08-02 10:13
PROVIDERS: ADMIT Internal Medicine; ATTEND Nurse Practitioner Acute Care
DX: F03.911 Unspecified dementia, unspecified severity, with agitation (principal); G93.41 Metabolic encephalopathy; E44.0 Moderate protein-calorie malnutrition; I69.351 Hemiplegia and hemiparesis following cerebral infarction affecting right dominant side; E87.6 Hypokalemia; G40.909 Epilepsy, unspecified, not intractable, without status epilepticus; I10 Essential (primary) hypertension; E78.5 Hyperlipidemia, unspecified; Z68.23 Body mass index [BMI] 23.0-23.9, adult; F25.9 Schizoaffective disorder, unspecified; I69.320 Aphasia following cerebral infarction
CPT/HCPCS: 0241U-QW; 36415; 70450-TC; 71045-TC-FY; 80053; 80177; 80307; 81003; 82962; 83735; 84100; 84484; 85025; 85027; 85610; 85730; 87086; 93005; 93010; 97161-GP; 99285-25; G0480

== ENCOUNTER 2023-12-22 00:17 | Inpatient (IN) | payer OTHER, BC ==
[2023-12-22 01:21] LABS: BASO % 0.6 % (0-2.0); EOS % 3.7 % (0-4.5); HEMATOCRIT 39.5 % (35.4-49); HEMOGLOBIN 13.5 GM/dL (11.7-16.9); LYMPH % 37.4 % (8-40); MCH 31.7 pg (25.7-33.7); MCHC 34.2 g/dl (32.0-35.9); MEAN CELL VOLUME 92.7 fl (80-96); MEAN PLT VOLUME 7.5 fl (7.5-11.1); NEUT % 52.3 % (42.8-82.8); PLATELET COUNT 162 10^3/uL (134-434); RBC 4.26 M/mm3 (4.00-5.60); RDW 13.3 % (11.9-15.9)
[2023-12-22] MEDS: FOLIC ACID INJECTION - 1 MG, THIAMINE HCL 100 MG, MULTIVIT INJECTION ADULT 10 ML in SOD... IVPB ONE (01:25)
[2023-12-22 01:39] LABS: INR 1.13 (0.83-1.09); PROTHROMBIN TIME (PATIENT) 12.9 SEC (9.7-13.0)
[2023-12-22 01:41] LABS: POTASSIUM 3.8 mmol/L (3.5-5.1)
[2023-12-22 01:42] LABS: ACTIVATED PTT 35.6 SECONDS (25.2-36.5)
[2023-12-22 01:44] LABS: ALBUMIN 2.9 g/dl (3.4-5.0); BLOOD UREA NITROGEN 18.7 mg/dL (7-18); CALCIUM 7.8 mg/dL (8.5-10.1)
[2023-12-22 01:47] LABS: CREATININE 0.7 mg/dL (0.55-1.3)
[2023-12-22 01:49] LABS: BILIRUBIN,TOTAL 0.5 mg/dL (0.2-1)
[2023-12-22] MEDS ORDERED: BISACODYL 5 MG TABLET.DR (FP) PO PRN (08:59)
[2023-12-22] MEDS: HEPARIN NA (PORCINE) 5,000 UNITS/ML 1ML VIAL SQ SCH (09:45)
[2023-12-22] MEDS: CLOPIDOGREL BISULFATE 75 MG TABLET (FP) PO SCH (09:46)
[2023-12-22] MEDS: PARoxetine HCL 10 MG TABLET PO SCH (09:46)
[2023-12-22] MEDS: levETIRAcetam 250 MG TABLET PO SCH (09:46)
[2023-12-22] MEDS: CARVEDILOL 6.25 MG TABLET (FP) PO SCH (09:46)
[2023-12-22] MEDS: ASPIRIN 81 MG CHEWABLE TABLETS PO SCH (09:46)
[2023-12-22] MEDS ORDERED: CARVEDILOL 25 MG TABLET (FP) PO SCH ×2 (10:00)
[2023-12-22] MEDS: INSULIN ASPART SLIDING SCALE (NOVOLOG) 1 VIAL SQ SCH (11:27)
[2023-12-22 11:41] LABS: HEMATOCRIT 38.9 % (35.4-49); HEMOGLOBIN 13.3 GM/dL (11.7-16.9); MCH 32.3 pg (25.7-33.7); MCHC 34.2 g/dl (32.0-35.9); MEAN CELL VOLUME 94.5 fl (80-96); MEAN PLT VOLUME 7.6 fl (7.5-11.1); PLATELET COUNT 159 10^3/uL (134-434); RBC 4.12 M/mm3 (4.00-5.60); RDW 13.4 % (11.9-15.9); WHITE BLOOD COUNT 4.8 K/mm3 (4.0-10.0)
[2023-12-22 11:59] LABS: POTASSIUM 3.5 mmol/L (3.5-5.1)
[2023-12-22 12:01] LABS: BLOOD UREA NITROGEN 16.6 mg/dL (7-18); CALCIUM 7.9 mg/dL (8.5-10.1); MAGNESIUM 2.1 mg/dL (1.8-2.4)
[2023-12-22 12:04] LABS: CREATININE 0.7 mg/dL (0.55-1.3)
[2023-12-22 12:05] LABS: PHOSPHOROUS 2.6 mg/dL (2.5-4.9)
[2023-12-22] MEDS: QUEtiapine FUMARATE 25 MG TABLET PO PRN (17:45)
[2023-12-22] MEDS: HALOPERIDOL LACTATE 5 MG/ML IM ONE (20:05)
[2023-12-22] MEDS: ATORVASTATIN CA 80 MG TABLET (FP) PO SCH (21:58)
[2023-12-22] MEDS: MEMANTINE HCL 5 MG TABLET (UD) PO SCH (21:59)
[2023-12-22] MEDS ORDERED: QUEtiapine FUMARATE 25 MG TABLET PO SCH (22:00)
[2023-12-23] MEDS: ASPIRIN COATED 81 MG TABLET.EC PO SCH (10:57)
[2023-12-23] MEDS: LISINOPRIL 20 MG TABLET PO SCH (11:50)
[2023-12-23 17:26] LABS: URINE APPEARANCE CLEAR; URINE BILIRUBIN NEGATIVE (NEGATIVE); URINE COLOR YELLOW; URINE GLUCOSE (UA) NEGATIVE (NEGATIVE); URINE KETONE NEGATIVE (NEGATIVE); URINE LEUK ESTERASE NEGATIVE (NEGATIVE); URINE NITRITE NEGATIVE (NEGATIVE); URINE PROTEIN NEGATIVE (NEGATIVE); URINE UROBILINOGEN 0.2 mg/dL (0.2-1.0)
[2023-12-23] MEDS: HALOPERIDOL LACTATE 5 MG/ML IM ONE (20:06)
[2023-12-23] MEDS: QUEtiapine FUMARATE 50 MG TABLET PO SCH (22:31)
[2023-12-23] MEDS: ATORVASTATIN CA 80 MG TABLET (FP) PO SCH (22:31)
[2023-12-24] MEDS: D5-1/2NS+40 MEQ KCL - 40 MEQ/1,000 ML INFUS.BAG IV SCH (11:34)
[2023-12-24 12:39] LABS: BASO % 0.5 % (0-2.0); EOS % 3.9 % (0-4.5); HEMATOCRIT 39.2 % (35.4-49); HEMOGLOBIN 13.7 GM/dL (11.7-16.9); LYMPH % 26.9 % (8-40); MCH 32.3 pg (25.7-33.7); MEAN CELL VOLUME 92.4 fl (80-96); MEAN PLT VOLUME 7.6 fl (7.5-11.1); MONO % 5.3 % (3.8-10.2); NEUT % 63.4 % (42.8-82.8); PLATELET COUNT 163 10^3/uL (134-434); RBC 4.24 M/mm3 (4.00-5.60); WHITE BLOOD COUNT 5.1 K/mm3 (4.0-10.0)
[2023-12-24 12:59] LABS: POTASSIUM 3.8 mmol/L (3.5-5.1)
[2023-12-24 13:05] LABS: ALBUMIN 3.2 g/dl (3.4-5.0); CALCIUM 8.6 mg/dL (8.5-10.1)
[2023-12-24 13:07] LABS: CREATININE 0.6 mg/dL (0.55-1.3); PHOSPHOROUS 3.4 mg/dL (2.5-4.9)
[2023-12-24 13:10] LABS: BILIRUBIN,TOTAL 0.6 mg/dL (0.2-1); TOT PROT 5.4 g/dl (6.4-8.2)
[2023-12-25] MEDS: ACETAMINOPHEN 325 MG TABLET (FP) PO ONE (06:15)
[2023-12-25 07:06] LABS: HEMATOCRIT 41.8 % (35.4-49); HEMOGLOBIN 14.2 GM/dL (11.7-16.9); MCH 32.1 pg (25.7-33.7); MCHC 33.9 g/dl (32.0-35.9); MEAN CELL VOLUME 94.5 fl (80-96); MEAN PLT VOLUME 7.4 fl (7.5-11.1); PLATELET COUNT 154 10^3/uL (134-434); RBC 4.43 M/mm3 (4.00-5.60); WHITE BLOOD COUNT 4.7 K/mm3 (4.0-10.0)
[2023-12-25 07:27] LABS: POTASSIUM 3.7 mmol/L (3.5-5.1)
[2023-12-25 07:29] LABS: BLOOD UREA NITROGEN 9.2 mg/dL (7-18); CALCIUM 8.5 mg/dL (8.5-10.1)
[2023-12-25 07:34] LABS: CREATININE 0.5 mg/dL (0.55-1.3)
[2023-12-25 15:47] VITALS: RESP 18
[2023-12-25] MEDS: POLYETHYLENE GLYCOL (HEALTHYLAX) 3350 17 GM PACKET PO ONE (17:00)
[2023-12-26 09:13] VITALS: BMI 21.1
[2023-12-26] MEDS: MULTIVITAMINS (DAILY MVI) TABLET (FP) PO SCH (10:23)
[2023-12-26] MEDS: ASCORBIC ACID 250 MG TABLET (FP) PO SCH (10:23)
[2023-12-26] MEDS: ATORVASTATIN CA 80 MG TABLET (FP) PO SCH (22:19)
[2023-12-26] MEDS: CARVEDILOL 6.25 MG TABLET (FP) PO SCH (22:19)
[2023-12-26] MEDS: levETIRAcetam 250 MG TABLET PO SCH (22:19)
[2023-12-26] MEDS: QUEtiapine FUMARATE 100 MG TABLET (FP) PO SCH (22:19)
[2023-12-26] MEDS: HEPARIN NA (PORCINE) 5,000 UNITS/ML 1ML VIAL SQ SCH (22:21)
[2023-12-27] MEDS: QUEtiapine FUMARATE 50 MG TABLET PO PRN (09:16)
[2023-12-27] MEDS: ASPIRIN COATED 81 MG TABLET.EC PO SCH (09:22)
[2023-12-27] MEDS: LISINOPRIL 20 MG TABLET PO SCH (09:22)
[2023-12-27] MEDS: ASCORBIC ACID 250 MG TABLET (FP) PO SCH (09:22)
[2023-12-27] MEDS: CLOPIDOGREL BISULFATE 75 MG TABLET (FP) PO SCH (09:22)
[2023-12-27] MEDS: MULTIVITAMINS (DAILY MVI) TABLET (FP) PO SCH (09:22)
[2023-12-28 09:21] VITALS: BP 110/60; PULSE 57; TEMP 98
== END 2023-12-28 12:56 | DRG 884 ==
LOC: JER 00:17 → JERBED 00:34 → UNDOADMOB 00:34 → INTOOBSV 00:34 → JERBED 06:02 → J4W 07:39 → OBSVTOIN 12-23 11:48 → J4W 12-23 21:47 → J8W 12-26 20:03
PROVIDERS: ADMIT Internal Medicine; ATTEND Nurse Practitioner Family
DX: F03.918 Unspecified dementia, unspecified severity, with other behavioral disturbance (principal); G93.41 Metabolic encephalopathy; I69.351 Hemiplegia and hemiparesis following cerebral infarction affecting right dominant side; E44.0 Moderate protein-calorie malnutrition; G40.909 Epilepsy, unspecified, not intractable, without status epilepticus; E11.9 Type 2 diabetes mellitus without complications; I69.320 Aphasia following cerebral infarction; E78.5 Hyperlipidemia, unspecified; R00.1 Bradycardia, unspecified; R45.1 Restlessness and agitation; M21.371 Foot drop, right foot; K57.90 Diverticulosis of intestine, part unspecified, without perforation or abscess without bleeding; E86.0 Dehydration; I65.22 Occlusion and stenosis of left carotid artery; I10 Essential (primary) hypertension; Z68.21 Body mass index [BMI] 21.0-21.9, adult; Z87.11 Personal history of peptic ulcer disease
CPT/HCPCS: 0241U-QW; 36415; 70450-TC; 70496-TC; 70498-TC; 71045-TC-FY; 80048; 80053; 80061; 81003; 82550; 82607; 82746; 82962; 83036; 83735; 84100; 84146; 84443; 84484; 85025; 85027; 85610; 85730; 86850; 86900; 86901; 93005; 93010; 97116-GP; 97162-GP; 99285-25; G0378; J1644

== ENCOUNTER 2024-05-13 15:09 | Inpatient (IN) | payer OTHER, BC ==
[2024-05-13 17:25] LABS: BASO % 0.7 % (0-2.0); EOS % 5.7 % (0-4.5); HEMATOCRIT 52.3 % (35.4-49); LYMPH % 26.6 % (8-40); MCH 32.1 pg (25.7-33.7); MCHC 32.6 g/dl (32.0-35.9); MEAN CELL VOLUME 98.5 fl (80-96); MEAN PLT VOLUME 8.3 fl (7.5-11.1); MONO % 3.9 % (3.8-10.2); NEUT % 63.1 % (42.8-82.8); PLATELET COUNT 160 10^3/uL (134-434); RBC 5.31 M/mm3 (4.00-5.60); RDW 13.7 % (11.9-15.9)
[2024-05-13 17:36] LABS: INR 1.05 (0.83-1.09); PROTHROMBIN TIME (PATIENT) 11.9 SEC (9.7-13.0)
[2024-05-13 17:44] LABS: POTASSIUM 4.5 mmol/L (3.5-5.1)
[2024-05-13 17:46] LABS: CALCIUM 9.1 mg/dL (8.5-10.1)
[2024-05-13 17:47] LABS: ALBUMIN 3.7 g/dl (3.4-5.0); BLOOD UREA NITROGEN 19.2 mg/dL (7-18)
[2024-05-13 17:50] LABS: CREATININE 0.7 mg/dL (0.55-1.3)
[2024-05-13 17:51] LABS: BILIRUBIN,TOTAL 0.9 mg/dL (0.2-1); TOT PROT 6.3 g/dl (6.4-8.2)
[2024-05-13] MEDS: MINERAL OIL ENEMA 133 ML ENEMA RC ONE (21:07)
[2024-05-13] MEDS: SODIUM CHLORIDE 0.9% 500 ML INFUS.BAG IV ONE (21:07)
[2024-05-13] MEDS: PEG 3350/NA SULF BICARB CL/KCL 4000 ML SOLN.RECON PO ONE (23:33)
[2024-05-14] MEDS: MINERAL OIL ENEMA 133 ML ENEMA RC ONE ×2 (01:18→18:24)
[2024-05-14] MEDS: SODIUM CHLORIDE 0.45% 1,000 ML IV SCH (02:20)
[2024-05-14 02:58] LABS: EPI CELLS 28 /uL (0-25.1); HYALINE CASTS 22 /uL (0-3.1); PH,URINE 5.5 (5.0-8.0); URINE APPEARANCE CLOUDY; URINE BACTERIA 3 /uL (0-1359); URINE BILIRUBIN NEGATIVE (NEGATIVE); URINE COLOR YELLOW; URINE GLUCOSE (UA) NEGATIVE (NEGATIVE); URINE KETONE 1+ (NEGATIVE); URINE LEUK ESTERASE TRACE (NEGATIVE); URINE NITRITE NEGATIVE (NEGATIVE); URINE PROTEIN 1+ (NEGATIVE); URINE RBC 5001 /uL (0-23.9); URINE WBC 110 /uL (0-25.8)
[2024-05-14] MEDS ORDERED: QUEtiapine FUMARATE 50 MG TABLET PO PRN (06:22)
[2024-05-14] MEDS: POLYETHYLENE GLYCOL (HEALTHYLAX) 3350 17 GM PACKET PO SCH (06:58)
[2024-05-14 08:25] LABS: POTASSIUM 3.6 mmol/L (3.5-5.1)
[2024-05-14 08:28] LABS: ALBUMIN 3.7 g/dl (3.4-5.0)
[2024-05-14 08:30] LABS: CALCIUM 9.1 mg/dL (8.5-10.1)
[2024-05-14 08:31] LABS: CREATININE 0.7 mg/dL (0.55-1.3); PHOSPHOROUS 3.2 mg/dL (2.5-4.9)
[2024-05-14 08:33] LABS: BILIRUBIN,TOTAL 0.9 mg/dL (0.2-1); TOT PROT 6.1 g/dl (6.4-8.2)
[2024-05-14 08:43] LABS: HEMATOCRIT 50.3 % (35.4-49); HEMOGLOBIN 16.7 GM/dL (11.7-16.9); MCH 32.3 pg (25.7-33.7); MCHC 33.2 g/dl (32.0-35.9); MEAN PLT VOLUME 8.3 fl (7.5-11.1); PLATELET COUNT 152 10^3/uL (134-434); RBC 5.18 M/mm3 (4.00-5.60); RDW 13.5 % (11.9-15.9); WHITE BLOOD COUNT 6.6 K/mm3 (4.0-10.0)
[2024-05-14] MEDS: CARVEDILOL 6.25 MG TABLET (FP) PO SCH (09:35)
[2024-05-14] MEDS: ASPIRIN COATED 81 MG TABLET.EC PO SCH (09:36)
[2024-05-14] MEDS: ENOXAPARIN NA (PORCINE) 40 MG/0.4 ML DISP.SYRIN SQ SCH (09:36)
[2024-05-14] MEDS: CLOPIDOGREL BISULFATE 75 MG TABLET (FP) PO SCH (09:36)
[2024-05-14] MEDS: LISINOPRIL 20 MG TABLET PO SCH (09:36)
[2024-05-14] MEDS ORDERED: levETIRAcetam 500 MG TABLET (FP) PO SCH (10:00)
[2024-05-14] MEDS ORDERED: POLYETHYLENE GLYCOL (HEALTHYLAX) 3350 17 GM PACKET PO SCH (10:00)
[2024-05-14] MEDS: EMPAGLIFLOZIN (JARDIANCE) 10 MG TABLET PO SCH (14:55)
[2024-05-14] MEDS: DEXTROSE 5%-WATER - 1,000 ML IV SCH (15:02)
[2024-05-14] MEDS: PEG 3350/NA SULF BICARB CL/KCL 4000 ML SOLN.RECON PO ONE (15:03)
[2024-05-14 16:01] VITALS: BMI 18.7
[2024-05-14] MEDS: PIPERACILLIN/TAZOB 2.25 GM 2.25 GM/50 ML BAG IVPB SCH (18:14)
[2024-05-14] MEDS: ATORVASTATIN CA 80 MG TABLET (FP) PO SCH (21:11)
[2024-05-14] MEDS: QUEtiapine FUMARATE 100 MG TABLET (FP) PO SCH (21:18)
[2024-05-15] MEDS: PIPERACILLIN/TAZOB 2.25 GM 2.25 GM/50 ML BAG IVPB SCH (18:14)
[2024-05-16 09:36] LABS: BASO % 0.4 % (0-2.0); EOS % 5.3 % (0-4.5); HEMATOCRIT 40.5 % (35.4-49); HEMOGLOBIN 13.7 GM/dL (11.7-16.9); LYMPH % 27.8 % (8-40); MCH 32.5 pg (25.7-33.7); MCHC 33.8 g/dl (32.0-35.9); MEAN CELL VOLUME 96.2 fl (80-96); MEAN PLT VOLUME 8.2 fl (7.5-11.1); MONO % 4.8 % (3.8-10.2); NEUT % 61.7 % (42.8-82.8); PLATELET COUNT 119 10^3/uL (134-434); RBC 4.21 M/mm3 (4.00-5.60); RDW 13.1 % (11.9-15.9); WHITE BLOOD COUNT 6.7 K/mm3 (4.0-10.0)
[2024-05-16 10:12] LABS: POTASSIUM 3.5 mmol/L (3.5-5.1)
[2024-05-16 10:13] LABS: CALCIUM 8.2 mg/dL (8.5-10.1)
[2024-05-16 10:14] LABS: BLOOD UREA NITROGEN 13.1 mg/dL (7-18)
[2024-05-16 10:16] LABS: ALBUMIN 2.8 g/dl (3.4-5.0)
[2024-05-16 10:17] LABS: CREATININE 0.6 mg/dL (0.55-1.3)
[2024-05-16 10:18] LABS: BILIRUBIN,TOTAL 0.6 mg/dL (0.2-1); TOT PROT 4.8 g/dl (6.4-8.2)
[2024-05-17 10:02] LABS: BASO % 0.7 % (0-2.0); EOS % 5.6 % (0-4.5); HEMATOCRIT 46.4 % (35.4-49); HEMOGLOBIN 15.1 GM/dL (11.7-16.9); LYMPH % 26.2 % (8-40); MCH 31.9 pg (25.7-33.7); MCHC 32.5 g/dl (32.0-35.9); MEAN CELL VOLUME 98.1 fl (80-96); MEAN PLT VOLUME 8.2 fl (7.5-11.1); MONO % 5.1 % (3.8-10.2); NEUT % 62.4 % (42.8-82.8); PLATELET COUNT 125 10^3/uL (134-434); RBC 4.73 M/mm3 (4.00-5.60); RDW 13.1 % (11.9-15.9); WHITE BLOOD COUNT 6.6 K/mm3 (4.0-10.0)
[2024-05-17 10:17] LABS: POTASSIUM 3.8 mmol/L (3.5-5.1)
[2024-05-17 10:20] LABS: BLOOD UREA NITROGEN 8.3 mg/dL (7-18); CALCIUM 8.3 mg/dL (8.5-10.1)
[2024-05-17 10:23] LABS: CREATININE 0.7 mg/dL (0.55-1.3)
[2024-05-17 10:24] LABS: BILIRUBIN,TOTAL 0.5 mg/dL (0.2-1); TOT PROT 5.4 g/dl (6.4-8.2)
[2024-05-17 16:12] VITALS: RESP 18
[2024-05-17] MEDS: AMOX TR/POT CLAV 500MG/125MG TABLETS (FP) PO SCH (18:20)
[2024-05-18 06:02] VITALS: BP 123/70; PULSE 70; TEMP 98.6
[2024-05-18] MEDS: PIPERACILLIN/TAZOB 2.25 GM 2.25 GM in DEXTROSE 5%-WATER - 50 ML IVPB SCH (08:03)
[2024-05-18 09:22] LABS: BASO % 0.5 % (0-2.0); EOS % 6.6 % (0-4.5); HEMATOCRIT 40.8 % (35.4-49); HEMOGLOBIN 13.7 GM/dL (11.7-16.9); LYMPH % 38.5 % (8-40); MCH 32.1 pg (25.7-33.7); MCHC 33.6 g/dl (32.0-35.9); MEAN CELL VOLUME 95.6 fl (80-96); MEAN PLT VOLUME 8.7 fl (7.5-11.1); MONO % 5.5 % (3.8-10.2); NEUT % 48.9 % (42.8-82.8); PLATELET COUNT 143 10^3/uL (134-434); RBC 4.26 M/mm3 (4.00-5.60); RDW 13.3 % (11.9-15.9)
[2024-05-18 09:45] LABS: POTASSIUM 3.8 mmol/L (3.5-5.1)
[2024-05-18 09:57] LABS: ALBUMIN 2.7 g/dl (3.4-5.0); CALCIUM 7.9 mg/dL (8.5-10.1)
[2024-05-18 10:00] LABS: CREATININE 0.7 mg/dL (0.55-1.3)
[2024-05-18 10:01] LABS: BILIRUBIN,TOTAL 0.4 mg/dL (0.2-1)
[2024-05-18 10:02] LABS: TOT PROT 4.8 g/dl (6.4-8.2)
== END 2024-05-18 11:32 | disposition home or self-care (01) | DRG 640 ==
LOC: JER 15:09 → JERBED 21:57 → J8W 05-14 00:33
PROVIDERS: ADMIT Internal Medicine; ATTEND Nurse Practitioner Family
DX: E87.0 Hyperosmolality and hypernatremia (principal); G93.41 Metabolic encephalopathy; L03.114 Cellulitis of left upper limb; I69.351 Hemiplegia and hemiparesis following cerebral infarction affecting right dominant side; E44.0 Moderate protein-calorie malnutrition; Z68.1 Body mass index [BMI] 19.9 or less, adult; E86.0 Dehydration; I10 Essential (primary) hypertension; E78.5 Hyperlipidemia, unspecified; G40.909 Epilepsy, unspecified, not intractable, without status epilepticus; E11.9 Type 2 diabetes mellitus without complications; I69.320 Aphasia following cerebral infarction; N40.0 Benign prostatic hyperplasia without lower urinary tract symptoms; K76.89 Other specified diseases of liver; K56.41 Fecal impaction
CPT/HCPCS: 0241U-QW; 36415; 70450-TC; 71045-TC-FY; 73130-TC-LT-FY; 74170-TC; 74177-TC; 80053; 81003; 82668; 82962; 83605; 83690; 83735; 84100; 84484; 85025; 85027; 85610; 85730; 87040; 87086; 93005; 93010; 97116-GP; 97161-GP; 99285-25

== ENCOUNTER 2024-07-10 20:24 | Inpatient (IN) | payer OTHER, BC ==
[2024-07-10 20:31] VITALS: BMI 19.0
[2024-07-10] MEDS: SODIUM CHLORIDE 0.9% 500 ML INFUS.BAG IV ONE (22:54)
[2024-07-10 23:11] LABS: BASO % 0.4 % (0-2.0); EOS % 1.9 % (0-4.5); HEMATOCRIT 39.9 % (35.4-49); HEMOGLOBIN 13.1 GM/dL (11.7-16.9); LYMPH % 28.8 % (8-40); MCH 31.2 pg (25.7-33.7); MCHC 32.8 g/dl (32.0-35.9); MEAN CELL VOLUME 95.2 fl (80-96); MEAN PLT VOLUME 7.1 fl (7.5-11.1); MONO % 5.3 % (3.8-10.2); NEUT % 63.6 % (42.8-82.8); PLATELET COUNT 210 10^3/uL (134-434); RBC 4.19 M/mm3 (4.00-5.60); RDW 14.4 % (11.9-15.9); WHITE BLOOD COUNT 3.7 K/mm3 (4.0-10.0)
[2024-07-10 23:18] LABS: INR 1.05 (0.83-1.09); PROTHROMBIN TIME (PATIENT) 11.8 SEC (9.7-13.0)
[2024-07-10 23:20] LABS: ACTIVATED PTT 35.2 SECONDS (25.2-36.5)
[2024-07-10 23:30] LABS: POTASSIUM 4.5 mmol/L (3.5-5.1)
[2024-07-10 23:32] LABS: CALCIUM 8.7 mg/dL (8.5-10.1)
[2024-07-10 23:33] LABS: ALBUMIN 3.2 g/dl (3.4-5.0); MAGNESIUM 2.3 mg/dL (1.8-2.4)
[2024-07-10 23:36] LABS: CREATININE 0.8 mg/dL (0.55-1.3)
[2024-07-10 23:38] LABS: BILIRUBIN,TOTAL 1.2 mg/dL (0.2-1); TOT PROT 5.8 g/dl (6.4-8.2)
[2024-07-11 03:18] LABS: PH,URINE 6.5 (5.0-8.0); URINE APPEARANCE CLEAR; URINE BILIRUBIN NEGATIVE (NEGATIVE); URINE COLOR DK YELLOW; URINE GLUCOSE (UA) NEGATIVE (NEGATIVE); URINE KETONE TRACE (NEGATIVE); URINE LEUK ESTERASE NEGATIVE (NEGATIVE); URINE NITRITE NEGATIVE (NEGATIVE); URINE PROTEIN TRACE (NEGATIVE)
[2024-07-11] MEDS: SODIUM CHLORIDE 0.9% 500 ML INFUS.BAG IV ONE (03:42)
[2024-07-11 04:29] LABS: POTASSIUM 3.7 mmol/L (3.5-5.1)
[2024-07-11 04:31] LABS: CALCIUM 8.8 mg/dL (8.5-10.1)
[2024-07-11 04:32] LABS: BLOOD UREA NITROGEN 20.2 mg/dL (7-18)
[2024-07-11 04:35] LABS: CREATININE 0.7 mg/dL (0.55-1.3)
[2024-07-11] MEDS ORDERED: QUEtiapine FUMARATE 25 MG TABLET PO PRN (08:45)
[2024-07-11] MEDS: ENOXAPARIN NA (PORCINE) 40 MG/0.4 ML DISP.SYRIN SQ SCH (11:51)
[2024-07-11] MEDS: levETIRAcetam 500 MG/5 ML ORAL SOLUTION (UNIT-DOSE CUPS) PO SCH (11:52)
[2024-07-11] MEDS: CARVEDILOL 6.25 MG TABLET (FP) PO SCH (11:53)
[2024-07-11] MEDS: LISINOPRIL 20 MG TABLET PO SCH (11:54)
[2024-07-11] MEDS: ASPIRIN COATED 81 MG TABLET.EC PO SCH (11:54)
[2024-07-11] MEDS: CLOPIDOGREL BISULFATE 75 MG TABLET (FP) PO SCH (11:54)
[2024-07-11] MEDS: DEXTROSE 5%-0.45% SALINE 1,000 ML IV SCH (13:59)
[2024-07-11] MEDS: INSULIN ASPART SLIDING SCALE (NOVOLOG) 1 VIAL SQ SCH (16:35)
[2024-07-11] MEDS: QUEtiapine FUMARATE 50 MG TABLET PO SCH (22:50)
[2024-07-11] MEDS: ATORVASTATIN CA 80 MG TABLET (FP) PO SCH (22:50)
[2024-07-12 09:25] LABS: BASO % 0.3 % (0-2.0); EOS % 2.5 % (0-4.5); HEMATOCRIT 34.7 % (35.4-49); HEMOGLOBIN 11.7 GM/dL (11.7-16.9); LYMPH % 20.9 % (8-40); MCH 31.7 pg (25.7-33.7); MCHC 33.7 g/dl (32.0-35.9); MEAN CELL VOLUME 93.9 fl (80-96); MEAN PLT VOLUME 7.4 fl (7.5-11.1); MONO % 4.6 % (3.8-10.2); NEUT % 71.7 % (42.8-82.8); PLATELET COUNT 187 10^3/uL (134-434); RBC 3.69 M/mm3 (4.00-5.60); RDW 14.1 % (11.9-15.9)
[2024-07-12 09:52] LABS: POTASSIUM 3.6 mmol/L (3.5-5.1)
[2024-07-12 10:36] LABS: ALBUMIN 2.8 g/dl (3.4-5.0); CALCIUM 8.1 mg/dL (8.5-10.1); MAGNESIUM 1.9 mg/dL (1.8-2.4)
[2024-07-12 10:37] LABS: BLOOD UREA NITROGEN 15.8 mg/dL (7-18)
[2024-07-12 10:40] LABS: CREATININE 0.5 mg/dL (0.55-1.3); PHOSPHOROUS 2.9 mg/dL (2.5-4.9)
[2024-07-12 10:41] LABS: BILIRUBIN,TOTAL 0.9 mg/dL (0.2-1); TOT PROT 4.6 g/dl (6.4-8.2)
[2024-07-12 17:44] LABS: EPI CELLS 7 /uL (0-25.1); HYALINE CASTS 17 /uL (0-3.1); PH,URINE 8.5 (5.0-8.0); URINE APPEARANCE TURBID; URINE BACTERIA >9,000 /uL (0-1359); URINE BILIRUBIN 1+ (NEGATIVE); URINE COLOR RED; URINE GLUCOSE (UA) NEGATIVE (NEGATIVE); URINE KETONE NEGATIVE (NEGATIVE); URINE LEUK ESTERASE 2+ (NEGATIVE); URINE NITRITE NEGATIVE (NEGATIVE); URINE PROTEIN 3+ (NEGATIVE); URINE RBC 9977 /uL (0-23.9); URINE WBC 12791 /uL (0-25.8)
[2024-07-13] MEDS: SODIUM CHLORIDE 1,000 ML IV SCH (09:27)
[2024-07-13] MEDS: CEFTRIAXONE 1 G/50 ML PREMIX 50 ML IVPB SCH (10:15)
[2024-07-13 15:48] VITALS: RESP 18
[2024-07-14 08:41] LABS: BASO % 0.1 % (0-2.0); EOS % 1.5 % (0-4.5); HEMATOCRIT 29.7 % (35.4-49); LYMPH % 12.8 % (8-40); MCH 31.8 pg (25.7-33.7); MCHC 33.7 g/dl (32.0-35.9); MEAN CELL VOLUME 94.6 fl (80-96); MEAN PLT VOLUME 7.1 fl (7.5-11.1); MONO % 5.1 % (3.8-10.2); NEUT % 80.5 % (42.8-82.8); PLATELET COUNT 146 10^3/uL (134-434); RBC 3.14 M/mm3 (4.00-5.60); RDW 14.8 % (11.9-15.9); WHITE BLOOD COUNT 8.6 K/mm3 (4.0-10.0)
[2024-07-14 09:08] LABS: POTASSIUM 3.7 mmol/L (3.5-5.1)
[2024-07-14 09:16] LABS: BLOOD UREA NITROGEN 11.2 mg/dL (7-18); CALCIUM 7.9 mg/dL (8.5-10.1)
[2024-07-14 09:17] LABS: CREATININE 0.4 mg/dL (0.55-1.3)
[2024-07-14 09:18] LABS: BILIRUBIN,TOTAL 0.8 mg/dL (0.2-1)
[2024-07-14 09:21] LABS: ALBUMIN 2.1 g/dl (3.4-5.0)
[2024-07-14] MEDS: CEFTRIAXONE 1 GM in DEXTROSE 5%-WATER - 50 ML IVPB SCH (23:18)
[2024-07-15 09:50] LABS: BASO % 0.6 % (0-2.0); EOS % 4.2 % (0-4.5); HEMOGLOBIN 10.4 GM/dL (11.7-16.9); LYMPH % 23.3 % (8-40); MCH 31.7 pg (25.7-33.7); MCHC 33.4 g/dl (32.0-35.9); MEAN CELL VOLUME 94.9 fl (80-96); MEAN PLT VOLUME 7.7 fl (7.5-11.1); MONO % 6.1 % (3.8-10.2); NEUT % 65.8 % (42.8-82.8); PLATELET COUNT 169 10^3/uL (134-434); RBC 3.26 M/mm3 (4.00-5.60); RDW 14.8 % (11.9-15.9); WHITE BLOOD COUNT 4.5 K/mm3 (4.0-10.0)
[2024-07-15 10:17] LABS: POTASSIUM 3.7 mmol/L (3.5-5.1)
[2024-07-15 10:32] LABS: CALCIUM 7.8 mg/dL (8.5-10.1)
[2024-07-15 10:33] LABS: ALBUMIN 2.2 g/dl (3.4-5.0); BLOOD UREA NITROGEN 10.7 mg/dL (7-18)
[2024-07-15 10:36] LABS: CREATININE 0.3 mg/dL (0.55-1.3)
[2024-07-15 10:37] LABS: BILIRUBIN,TOTAL 0.6 mg/dL (0.2-1); TOT PROT 4.2 g/dl (6.4-8.2)
[2024-07-16] MEDS: AMOX TR/POT CLAV 875MG/125MG TABLETS (FP) PO SCH (18:14)
[2024-07-17 09:53] VITALS: BP 128/75; PULSE 70; TEMP 98.2
== END 2024-07-17 10:32 | DRG 689 ==
LOC: JER 20:24 → JERBED 07-11 06:26 → J8W 07-11 09:04 → OBSVTOIN 07-12 16:49
PROVIDERS: ADMIT Internal Medicine; ATTEND Nurse Practitioner Acute Care
DX: N39.0 Urinary tract infection, site not specified (principal); E43 Unspecified severe protein-calorie malnutrition; I69.351 Hemiplegia and hemiparesis following cerebral infarction affecting right dominant side; R47.01 Aphasia; Z68.1 Body mass index [BMI] 19.9 or less, adult; E87.20 Acidosis, unspecified; R64 Cachexia; F03.90 Unspecified dementia, unspecified severity, without behavioral disturbance, psychotic disturbance, mood disturbance, and anxiety; I10 Essential (primary) hypertension; E11.9 Type 2 diabetes mellitus without complications; R62.7 Adult failure to thrive; I95.9 Hypotension, unspecified; E78.5 Hyperlipidemia, unspecified; G40.909 Epilepsy, unspecified, not intractable, without status epilepticus; L53.9 Erythematous condition, unspecified; R53.1 Weakness; B96.4 Proteus (mirabilis) (morganii) as the cause of diseases classified elsewhere; K76.89 Other specified diseases of liver; Z87.11 Personal history of peptic ulcer disease; K59.00 Constipation, unspecified; Z66 Do not resuscitate
CPT/HCPCS: 0241U-QW; 36415; 71045-TC-FY; 73110-TC-LT-FY; 73130-TC-LT-FY; 76775-TC; 80048; 80053; 81003; 82024; 82533; 82962; 83605; 83735; 84100; 84439; 84443; 84484; 85025; 85610; 85730; 87040; 87086; 87186; 93005; 93010; 97162-GP; 99285-25; G0378